=== PATIENT | female | born 1960 | race Two or more races ===

== ENCOUNTER 2022-10-14 11:35 | Inpatient (IN) | payer MEDICARE, MEDICAID ==
[~2022-10-14] VITALS: Ht 167.6 cm; Wt 87.9 kg
[2022-10-14] MEDS ORDERED: PIPERACILLIN-TAZOB 3.375GM 100 ML IV ONE (11:45)
[2022-10-14 12:15] VITALS: PULSE 75; RESP 14; O2SAT 97
[2022-10-14 12:24] LABS: Basophils # (auto) 0 10 ^3/uL (0-0.2); Basophils % (auto) 0.8 % (0.0-2.0); Eosinophils # (auto) 0.1 10 ^3/uL (0-0.8); Eosinophils % (auto) 1.6 % (0.0-7.0); Hematocrit 31.8 % (36.0-46.0); Hemoglobin 10.5 g/dL (12.2-16.2); Lymphocytes # (auto) 1.2 10 ^3/uL (0.4-5.4); Lymphocytes % (auto) 35.3 % (10.0-50.0); Mean Corpuscular Hgb Conc. 32.9 g/dL (32.0-36.0); Mean Corpuscular Volume 91.4 fL (80.0-100.0); Monocytes # (auto) 0.4 10 ^3/uL (0-1.3); Monocytes % (auto) 12.9 % (0.0-12.0); Neutrophils # (auto) 1.6 10 ^3/uL (1.6-8.6); Neutrophils % (auto) 49.4 % (37.0-80.0); Nucleated Red Blood Cells % 0.4 %; Red Blood Cells 3.48 10^6/uL (4.0-5.20); Red Cell Distribution Width 14.2 % (11.8-14.3); White Blood Cell 3.3 10^3/uL (4.4-10.8)
[2022-10-14 12:54] LABS: Alanine Aminotransferase 70 U/L (7-40); Albumin 3.6 g/dL (3.2-4.8); Alkaline Phosphatase 260 U/L (46-116); Anion Gap 7.2 (5-15); Aspartate Aminotransferase 65 U/L (13-40); BUN/Creatinine Ratio 9.9 (10.0-20.0); Bilirubin, Total 0.6 mg/dL (0.2-1.0); Blood Urea Nitrogen 34 mg/dL (9-23); Calcium 7.2 mg/dL (8.5-10.1); Carbon Dioxide 32.8 mmol/L (20-30); Chloride 94 mmol/L (98-107); Glucose 160 mg/dL (74-106); Potassium 3.9 mmol/L (3.5-5.1); Sodium 134 mmol/L (136-145); Total Protein 6.4 g/dL (5.7-8.2)
[2022-10-14] MEDS ORDERED: MET500T PO (16:14)
[2022-10-14] MEDS ORDERED: CLOP75TA70 PO (16:14)
[2022-10-14] MEDS ORDERED: LEVO150T10 PO (16:14)
[2022-10-14] MEDS ORDERED: HYDR25TA87 PO (16:14)
[2022-10-14] MEDS ORDERED: SUCR1TAB PO (16:14)
[2022-10-14] MEDS ORDERED: ASPI-325 PO (16:14)
[2022-10-14] MEDS ORDERED: ATOR40TA52 PO (16:14)
[2022-10-14] MEDS ORDERED: MORPHINE SULFATE INJ 2 MG/ml SYRG IV PRN (16:15)
[2022-10-14] MEDS ORDERED: DEXTROSE (50%) 50ML SYRG IV PRN (16:15)
[2022-10-14] MEDS ORDERED: hydrALAZINE HCL 20 MG/ML VL IV PRN (16:15)
[2022-10-14] MEDS ORDERED: ALBUTEROL SULF 2.5 MG/0.5ML(0.5%) NEB SOLN NEB PRN ×2 (16:15→16:45)
[2022-10-14] MEDS ORDERED: NITROGLYCERIN 0.4 MG SL TAB SL PRN (16:15)
[2022-10-14 16:24] VITALS: BP 184/73; PULSE 83; RESP 18; O2SAT 96
[2022-10-14] MEDS ORDERED: cefTRIAXone 1GM/50ML D5W 50 ML IV ONE (16:30)
[2022-10-14] MEDS: InsuLIN REG 1unit/0.01ml Soln (100units/ml) SC SCH ×2 (17:00→23:58)
[2022-10-14] MEDS: ACCU-CHEK COMFORT CURVE STRIP VI SCH ×2 (17:00→23:55)
[2022-10-14] MEDS ORDERED: AZITHROMYCIN 500MG/ 250ML 250 ML IV ONE (17:15)
[2022-10-14 17:16] LABS: COVID19 ANTIGEN SOFIA FIA NEGATIVE (NEGATIVE)
[2022-10-14] MEDS: IPRATROPIUM BROM 0.5 MG/2.5ML INH SOL NEB SCH ×2 (18:32→21:27)
[2022-10-14] MEDS: ALBUTEROL SULF 2.5 MG/0.5ML(0.5%) NEB SOLN NEB SCH ×2 (18:32→21:27)
[2022-10-14 20:10] VITALS: PULSE 80; RESP 17; O2SAT 98
[2022-10-14] MEDS: hydrALAZINE HCL 25 MG TAB PO SCH (23:58)
[2022-10-15] VITALS (14 sets, daily range): BP systolic 100; BP diastolic 75; PULSE 74–85; RESP 16–20; TEMP 98.4; O2SAT 93–100
[2022-10-15] MEDS: ATORVASTATIN 20 MG TAB PO SCH ×2 (00:04→21:19)
[2022-10-15] MEDS: HEPARIN SODIUM (PORCINE) 5000 UNITS/ML 1ML VIAL SC SCH ×3 (00:06→21:31)
[2022-10-15] MEDS: ALBUTEROL SULF 2.5 MG/0.5ML(0.5%) NEB SOLN NEB SCH ×6 (01:55→23:03)
[2022-10-15] MEDS: IPRATROPIUM BROM 0.5 MG/2.5ML INH SOL NEB SCH ×6 (01:55→23:03)
[2022-10-15 03:15] LABS: Rapid Influenza A Negative (Negative); Rapid Influenza B Negative (Negative)
[2022-10-15 06:08] LABS: Basophils # (auto) 0 10 ^3/uL (0-0.2); Basophils % (auto) 0.5 % (0.0-2.0); Eosinophils # (auto) 0 10 ^3/uL (0-0.8); Eosinophils % (auto) 1.5 % (0.0-7.0); Hematocrit 31.5 % (36.0-46.0); Hemoglobin 10.4 g/dL (12.2-16.2); Lymphocytes # (auto) 0.8 10 ^3/uL (0.4-5.4); Lymphocytes % (auto) 27.2 % (10.0-50.0); Mean Corpuscular Hemoglobin 30.3 pg (28.0-32.0); Mean Corpuscular Hgb Conc. 33.2 g/dL (32.0-36.0); Mean Corpuscular Volume 91.2 fL (80.0-100.0); Monocytes # (auto) 0.4 10 ^3/uL (0-1.3); Monocytes % (auto) 12.5 % (0.0-12.0); Neutrophils # (auto) 1.8 10 ^3/uL (1.6-8.6); Neutrophils % (auto) 58.3 % (37.0-80.0); Nucleated Red Blood Cells % 0.3 %; Red Blood Cells 3.45 10^6/uL (4.0-5.20); White Blood Cell 3.1 10^3/uL (4.4-10.8)
[2022-10-15 06:24] LABS: Alanine Aminotransferase 58 U/L (7-40); Albumin 3.6 g/dL (3.2-4.8); Alkaline Phosphatase 233 U/L (46-116); Anion Gap 7.4 (5-15); Aspartate Aminotransferase 60 U/L (13-40); BUN/Creatinine Ratio 7.6 (10.0-20.0); Bilirubin, Total 0.4 mg/dL (0.2-1.0); Blood Urea Nitrogen 39 mg/dL (9-23); Calcium 7.2 mg/dL (8.7-10.4); Carbon Dioxide 31.6 mmol/L (20-30); Chloride 94 mmol/L (98-107); Glucose 121 mg/dL (74-106); Potassium 3.8 mmol/L (3.5-5.1); Sodium 133 mmol/L (136-145)
[2022-10-15 06:25] LABS: Total Protein 6.6 g/dL (5.7-8.2)
[2022-10-15] MEDS: InsuLIN REG 1unit/0.01ml Soln (100units/ml) SC SCH ×4 (06:27→21:32)
[2022-10-15] MEDS: ACCU-CHEK COMFORT CURVE STRIP VI SCH ×4 (06:27→21:32)
[2022-10-15] MEDS: hydrALAZINE HCL 25 MG TAB PO SCH ×3 (06:51→21:20)
[2022-10-15] MEDS: CLOPIDOGREL BISULFATE 75 MG TAB PO SCH (08:52)
[2022-10-15] MEDS: ASPirin-EC 81 mg tab PO SCH (08:52)
[2022-10-15] MEDS: LEVOTHYROXINE SODIUM 50 MCG TAB PO SCH (08:53)
[2022-10-15] MEDS: AZITHROMYCIN 500MG/ 250ML 250 ML IV SCH (09:28)
[2022-10-15] MEDS: cefTRIAXone 1GM/50ML D5W 50 ML IV SCH (09:28)
[2022-10-15] MEDS ORDERED: LOSA50TA46 PO (19:08)
[2022-10-15] MEDS ORDERED: LORA-622 PO (19:16)
[2022-10-15] MEDS ORDERED: PROM25TA10 PO (19:16)
[2022-10-15] MEDS ORDERED: HYDR-4902 PO (19:16)
[2022-10-15] MEDS ORDERED: PATI1POW3 PO (19:16)
[2022-10-15] MEDS ORDERED: LEVEMIR SC (19:16)
[2022-10-15] MEDS ORDERED: NITR0.4S29 SL (19:16)
[2022-10-15] MEDS ORDERED: DIPH2.5T73 PO (19:16)
[2022-10-15] MEDS ORDERED: DOCU-94 PO (19:16)
[2022-10-15] MEDS ORDERED: HYDR-3682 PO (19:16)
[2022-10-15] MEDS ORDERED: BIOT5TAB3 PO (19:16)
[2022-10-15] MEDS ORDERED: CARV12.544 PO (19:16)
[2022-10-16] VITALS (21 sets, daily range): BP systolic 123–169; BP diastolic 46–72; PULSE 78–84; RESP 14–20; TEMP 97.6–98; O2SAT 90–100
[2022-10-16] MEDS: ALBUTEROL SULF 2.5 MG/0.5ML(0.5%) NEB SOLN NEB SCH ×6 (02:18→22:25)
[2022-10-16] MEDS: IPRATROPIUM BROM 0.5 MG/2.5ML INH SOL NEB SCH ×6 (02:18→22:25)
[2022-10-16] MEDS: ACETAMINOPHEN 325 MG TAB PO PRN (04:57)
[2022-10-16] MEDS: hydrALAZINE HCL 25 MG TAB PO SCH ×3 (05:33→21:35)
[2022-10-16] MEDS: InsuLIN REG 1unit/0.01ml Soln (100units/ml) SC SCH ×4 (06:12→21:41)
[2022-10-16] MEDS: ACCU-CHEK COMFORT CURVE STRIP VI SCH ×4 (06:12→21:41)
[2022-10-16 06:59] LABS: Chloride 92 mmol/L (98-107); Sodium 131 mmol/L (136-145)
[2022-10-16 07:00] LABS: Anion Gap 8.9 (5-15); Carbon Dioxide 30.1 mmol/L (20-30)
[2022-10-16 07:05] LABS: BUN/Creatinine Ratio 7.4 (10.0-20.0); Glucose 97 mg/dL (74-106)
[2022-10-16 07:35] LABS: Basophils # (auto) 0 10 ^3/uL (0-0.2); Basophils % (auto) 0.4 % (0.0-2.0); Eosinophils # (auto) 0.1 10 ^3/uL (0-0.8); Eosinophils % (auto) 3.1 % (0.0-7.0); Hematocrit 29.2 % (36.0-46.0); Hemoglobin 9.8 g/dL (12.2-16.2); Lymphocytes % (auto) 27.8 % (10.0-50.0); Mean Corpuscular Hemoglobin 30.7 pg (28.0-32.0); Mean Corpuscular Hgb Conc. 33.6 g/dL (32.0-36.0); Mean Corpuscular Volume 91.3 fL (80.0-100.0); Monocytes # (auto) 0.5 10 ^3/uL (0-1.3); Monocytes % (auto) 12.9 % (0.0-12.0); Neutrophils # (auto) 2.1 10 ^3/uL (1.6-8.6); Neutrophils % (auto) 55.8 % (37.0-80.0); Nucleated Red Blood Cells % 0.1 %; Red Cell Distribution Width 13.8 % (11.8-14.3); White Blood Cell 3.8 10^3/uL (4.4-10.8)
[2022-10-16 08:01] LABS: Blood Urea Nitrogen 49 mg/dL (9-23)
[2022-10-16] MEDS: CLOPIDOGREL BISULFATE 75 MG TAB PO SCH ×2 (09:18→10:16)
[2022-10-16] MEDS: LEVOTHYROXINE SODIUM 50 MCG TAB PO SCH (09:19)
[2022-10-16] MEDS: cefTRIAXone 1GM/50ML D5W 50 ML IV SCH (09:19)
[2022-10-16] MEDS: ASPirin-EC 81 mg tab PO SCH (09:19)
[2022-10-16] MEDS: HEPARIN SODIUM (PORCINE) 5000 UNITS/ML 1ML VIAL SC SCH ×2 (10:00→21:40)
[2022-10-16] MEDS: AZITHROMYCIN 500MG/ 250ML 250 ML IV SCH (10:20)
[2022-10-16] MEDS: ONDANSETRON HCL 4 MG/2 ML VIAL IV PRN (12:35)
[2022-10-16] MEDS: ATORVASTATIN 20 MG TAB PO SCH (21:35)
[2022-10-17] VITALS (19 sets, daily range): BP systolic 136–175; BP diastolic 41–84; PULSE 79–88; RESP 16–20; TEMP 97.4–98.6; O2SAT 90–100
[2022-10-17] MEDS: ALBUTEROL SULF 2.5 MG/0.5ML(0.5%) NEB SOLN NEB SCH ×6 (02:35→22:43)
[2022-10-17] MEDS: IPRATROPIUM BROM 0.5 MG/2.5ML INH SOL NEB SCH ×6 (02:35→22:43)
[2022-10-17] MEDS: ACETAMINOPHEN 325 MG TAB PO PRN (05:26)
[2022-10-17] MEDS: hydrALAZINE HCL 25 MG TAB PO SCH ×3 (05:32→21:44)
[2022-10-17] MEDS: ONDANSETRON HCL 4 MG/2 ML VIAL IV PRN (06:19)
[2022-10-17] MEDS: InsuLIN REG 1unit/0.01ml Soln (100units/ml) SC SCH ×4 (06:38→21:55)
[2022-10-17] MEDS: ACCU-CHEK COMFORT CURVE STRIP VI SCH ×4 (06:38→21:54)
[2022-10-17] MEDS ORDERED: HEPARIN SODIUM (PORCINE) 5000 UNITS/ML 1ML VIAL ONE (09:20)
[2022-10-17] MEDS: AZITHROMYCIN 500MG/ 250ML 250 ML IV SCH (09:35)
[2022-10-17] MEDS: cefTRIAXone 1GM/50ML D5W 50 ML IV SCH (09:35)
[2022-10-17] MEDS: LEVOTHYROXINE SODIUM 50 MCG TAB PO SCH (09:36)
[2022-10-17] MEDS: CLOPIDOGREL BISULFATE 75 MG TAB PO SCH (09:36)
[2022-10-17] MEDS: ASPirin-EC 81 mg tab PO SCH (09:37)
[2022-10-17] MEDS: HEPARIN SODIUM (PORCINE) 5000 UNITS/ML 1ML VIAL SC SCH ×2 (09:46→21:49)
[2022-10-17] MEDS ORDERED: SODIUM CHL 0.9% 1000 ML BAG XX ONE (11:00)
[2022-10-17] MEDS: ATORVASTATIN 20 MG TAB PO SCH (21:43)
[2022-10-18] VITALS (13 sets, daily range): BP systolic 123–150; BP diastolic 54–71; PULSE 81–95; RESP 16–21; TEMP 97.8–98.7; O2SAT 92–100
[2022-10-18] MEDS: ALBUTEROL SULF 2.5 MG/0.5ML(0.5%) NEB SOLN NEB SCH ×4 (01:48→14:19)
[2022-10-18] MEDS: IPRATROPIUM BROM 0.5 MG/2.5ML INH SOL NEB SCH ×4 (01:48→14:19)
[2022-10-18] MEDS: hydrALAZINE HCL 25 MG TAB PO SCH ×2 (06:17→13:50)
[2022-10-18] MEDS: InsuLIN REG 1unit/0.01ml Soln (100units/ml) SC SCH ×2 (06:19→12:07)
[2022-10-18] MEDS: ACCU-CHEK COMFORT CURVE STRIP VI SCH ×2 (06:21→12:05)
[2022-10-18 06:41] LABS: Anion Gap 6.2 (5-15); Calcium 7.3 mg/dL (8.7-10.4); Carbon Dioxide 30.8 mmol/L (20-30); Chloride 97 mmol/L (98-107); Potassium 4.4 mmol/L (3.5-5.1); Sodium 134 mmol/L (136-145)
[2022-10-18 06:47] LABS: BUN/Creatinine Ratio 5.3 (10.0-20.0); Glucose 113 mg/dL (74-106)
[2022-10-18 06:49] LABS: Blood Urea Nitrogen 30 mg/dL (9-23)
[2022-10-18] MEDS: cefTRIAXone 1GM/50ML D5W 50 ML IV SCH (09:01)
[2022-10-18] MEDS: ASPirin-EC 81 mg tab PO SCH (09:02)
[2022-10-18] MEDS: LEVOTHYROXINE SODIUM 50 MCG TAB PO SCH (09:02)
[2022-10-18] MEDS: CLOPIDOGREL BISULFATE 75 MG TAB PO SCH (09:03)
[2022-10-18] MEDS: AZITHROMYCIN 500MG/ 250ML 250 ML IV SCH (10:25)
[2022-10-18] MEDS ORDERED: DOXY-448 PO (14:19)
[2022-10-18] MEDS: HEPARIN SODIUM (PORCINE) 5000 UNITS/ML 1ML VIAL SC SCH (14:32)
[2022-10-18] MEDS ORDERED: DOXYCYCLINE 100 MG TAB/CAP PO SCH (22:00)
== END 2022-10-18 17:30 | disposition home or self-care (01) | DRG 177 ==
LOC: EDBD 11:35 → ER 11:35 → TELE 16:12 → TELE-WESTW 10-15 18:41
PROVIDERS: ADMIT Nurse Practitioner Family; ATTEND Nurse Practitioner Acute Care
PROC: 5A1D70Z Performance of Urinary Filtration, Intermittent, Less than 6 Hours Per Day (ICD-10-PCS; principal; 2022-10-17)
DX: J15.6 Pneumonia due to other Gram-negative bacteria (principal); J96.01 Acute respiratory failure with hypoxia; N18.6 End stage renal disease; I12.0 Hypertensive chronic kidney disease with stage 5 chronic kidney disease or end stage renal disease; J15.9 Unspecified bacterial pneumonia; E11.65 Type 2 diabetes mellitus with hyperglycemia; M89.8X9 Other specified disorders of bone, unspecified site; Z20.822 Contact with and (suspected) exposure to COVID-19; D63.1 Anemia in chronic kidney disease; E11.22 Type 2 diabetes mellitus with diabetic chronic kidney disease; Z99.2 Dependence on renal dialysis; Z83.3 Family history of diabetes mellitus
CPT/HCPCS: 36415; 71045; 80048; 80053; 82962; 83036; 83880; 84443; 84484; 85025; 87426; 87804; 90935; 93005; 93306; 94640; 96365; 96367; 99291; G0378; J0696; J1815; J2405; J2543

== ENCOUNTER 2023-01-13 15:08 | Emergency (ER) | payer MEDICARE, MEDICAID ==
[~2023-01-13] VITALS: Ht 167.6 cm; Wt 85.4 kg
[~2023-01-13 15:08] MED LIST: ASPI-325 PO; BIOT5TAB3 PO; CARV12.544 PO; CLOP75TA70 PO; DIPH2.5T73 PO; DOCU-94 PO; DOXY-448 PO; HYDR-3682 PO; HYDR-4902 PO; LEVEMIR SC; LEVO150T10 PO; LORA-622 PO; LOSA50TA46 PO; NITR0.4S29 SL; PATI1POW3 PO; PROM25TA10 PO
[2023-01-13 15:22] VITALS: BP 140/59; PULSE 77; RESP 17; O2SAT 95
[2023-01-13] MEDS ORDERED: AMOXICILLIN/CLAVUL 875 MG TAB PO ONE (15:30)
[2023-01-13] MEDS ORDERED: HYDROcodone-ACET 10/325MG TAB PO ONE (15:30)
[2023-01-13] MEDS ORDERED: TETANUS-DIPTH-ACEL PERTUSSIS 0.5ML SYR Tdap IM ONE (15:30)
[2023-01-13] MEDS ORDERED: IBUP-1455 PO (16:36)
[2023-01-13] MEDS ORDERED: ACE3T PO (16:36)
[2023-01-13] MEDS ORDERED: AUG875T PO (16:36)
== END 2023-01-13 17:51 | disposition home or self-care (01) ==
LOC: ER 15:08
DX: K04.7 Periapical abscess without sinus (principal); E11.22 Type 2 diabetes mellitus with diabetic chronic kidney disease; I12.9 Hypertensive chronic kidney disease with stage 1 through stage 4 chronic kidney disease, or unspecified chronic kidney disease; N18.9 Chronic kidney disease, unspecified
CPT/HCPCS: 70486; 90471; 90715

== ENCOUNTER 2023-08-21 06:42 | Inpatient (IN) | payer MEDICARE, MEDICAID ==
[~2023-08-21] VITALS: Ht 167.6 cm; Wt 83.5 kg
[~2023-08-21 06:42] MED LIST changes: +ACE3T PO; +AUG875T PO; +IBUP-1455 PO; +LOSA-534 PO; -LOSA50TA46 PO
[2023-08-21 07:49] VITALS: PULSE 66; RESP 16; O2SAT 96
[2023-08-21 07:51] LABS: Basophils # (auto) 0 10 ^3/uL (0-0.2); Basophils % (auto) 1.2 % (0.0-2.0); Eosinophils # (auto) 0.2 10 ^3/uL (0-0.8); Eosinophils % (auto) 4.1 % (0.0-7.0); Hematocrit 31.6 % (36.0-46.0); Hemoglobin 10.6 g/dL (12.2-16.2); Lymphocytes # (auto) 1.2 10 ^3/uL (0.4-5.4); Lymphocytes % (auto) 31.2 % (10.0-50.0); Mean Corpuscular Hemoglobin 31.3 pg (28.0-32.0); Mean Corpuscular Hgb Conc. 33.5 g/dL (32.0-36.0); Mean Corpuscular Volume 93.4 fL (80.0-100.0); Monocytes # (auto) 0.5 10 ^3/uL (0-1.3); Monocytes % (auto) 11.4 % (0.0-12.0); Neutrophils # (auto) 2.1 10 ^3/uL (1.6-8.6); Neutrophils % (auto) 52.1 % (37.0-80.0); Nucleated Red Blood Cells % 0.2 %; Red Blood Cells 3.39 10^6/uL (4.0-5.20); Red Cell Distribution Width 15.2 % (11.8-14.3)
[2023-08-21 08:01] LABS: Chloride 101 mmol/L (98-107); Potassium 3.6 mmol/L (3.5-5.1); Sodium 139 mmol/L (136-145)
[2023-08-21 08:02] LABS: Anion Gap 6 (5-15); Carbon Dioxide 32 mmol/L (20-30)
[2023-08-21 08:03] LABS: Calcium 8.9 mg/dL (8.5-10.1)
[2023-08-21 08:07] LABS: BUN/Creatinine Ratio 9.9 (10.0-20.0); Blood Urea Nitrogen 47 mg/dL (9-23); Glucose 157 mg/dL (74-106)
[2023-08-21] MEDS: cloNIDine HCL 0.1 MG TAB PO ONE (13:27)
[2023-08-21] MEDS: HYDROcodone-ACET 10/325MG TAB PO ONE (13:27)
[2023-08-21] MEDS ORDERED: ACETAMINOPHEN 325 MG TAB PO PRN (14:45)
[2023-08-21] MEDS ORDERED: DEXTROSE (50%) 50ML SYRG IV PRN (14:45)
[2023-08-21] MEDS ORDERED: DOCUSATE SOD 100 MG CAP PO PRN (14:45)
[2023-08-21] MEDS ORDERED: IBUPROFEN 800 MG TAB PO PRN (14:45)
[2023-08-21] MEDS: ACCU-CHEK COMFORT CURVE STRIP VI SCH (17:38)
[2023-08-21] MEDS: InsuLIN REG 1unit/0.01ml Soln (100units/ml) SC SCH (17:39)
[2023-08-21] MEDS: CARVEDILOL 12.5 MG TAB PO SCH (22:14)
[2023-08-21 22:25] VITALS: PULSE 84; RESP 18; O2SAT 98
[2023-08-22] VITALS (8 sets, daily range): BP systolic 132–157; BP diastolic 56–61; PULSE 62–72; RESP 16–20; TEMP 97.4–98.9; O2SAT 90–100
[2023-08-22] MEDS: LEVOTHYROXINE SODIUM 50 MCG TAB PO SCH (05:31)
[2023-08-22 07:01] LABS: Basophils # (auto) 0 10 ^3/uL (0-0.2); Basophils % (auto) 0.9 % (0.0-2.0); Eosinophils # (auto) 0.2 10 ^3/uL (0-0.8); Eosinophils % (auto) 5.2 % (0.0-7.0); Hematocrit 31.5 % (36.0-46.0); Hemoglobin 10.7 g/dL (12.2-16.2); Lymphocytes # (auto) 1.2 10 ^3/uL (0.4-5.4); Lymphocytes % (auto) 29.3 % (10.0-50.0); Mean Corpuscular Hemoglobin 31.9 pg (28.0-32.0); Mean Corpuscular Volume 93.7 fL (80.0-100.0); Monocytes # (auto) 0.4 10 ^3/uL (0-1.3); Monocytes % (auto) 10.9 % (0.0-12.0); Neutrophils # (auto) 2.2 10 ^3/uL (1.6-8.6); Neutrophils % (auto) 53.7 % (37.0-80.0); Nucleated Red Blood Cells % 0.1 %; Red Blood Cells 3.36 10^6/uL (4.0-5.20); Red Cell Distribution Width 15.1 % (11.8-14.3); White Blood Cell 4.1 10^3/uL (4.4-10.8)
[2023-08-22 07:06] LABS: Alanine Aminotransferase 21 U/L (7-40); Albumin 3.5 g/dL (3.2-4.8); Alkaline Phosphatase 356 U/L (46-116); Anion Gap 10 (5-15); Aspartate Aminotransferase 24 U/L (13-40); BUN/Creatinine Ratio 10.7 (10.0-20.0); Blood Urea Nitrogen 66 mg/dL (9-23); Calcium 8.8 mg/dL (8.5-10.1); Carbon Dioxide 29 mmol/L (20-30); Chloride 99 mmol/L (98-107); Glucose 129 mg/dL (74-106); Potassium 4.8 mmol/L (3.5-5.1); Sodium 138 mmol/L (136-145)
[2023-08-22 07:07] LABS: Bilirubin, Total 0.3 mg/dL (0.2-1.0); Total Protein 6.2 g/dL (5.7-8.2)
[2023-08-22] MEDS: CLOPIDOGREL BISULFATE 75 MG TAB PO SCH (09:24)
[2023-08-22] MEDS: ASPirin-EC 81 mg tab PO SCH (09:24)
[2023-08-22] MEDS: LOSARTAN POTASSIUM 50 MG TAB PO SCH (09:24)
[2023-08-22] MEDS: LORATADINE 10 MG TAB PO SCH (09:25)
[2023-08-22] MEDS: HYDROcodone-ACET 5/325MG TAB PO PRN (12:05)
[2023-08-23 05:00] VITALS: BP 150/62; PULSE 64; RESP 18; TEMP 98; O2SAT 100
[2023-08-23 08:00] VITALS: PULSE 68; RESP 16; O2SAT 100
[2023-08-23 09:00] VITALS: BP 111/68; PULSE 68; RESP 18; TEMP 97.8; O2SAT 94
[2023-08-23 13:00] VITALS: BP 127/61; PULSE 67; RESP 18; TEMP 98.6; O2SAT 95
[2023-08-23 16:31] VITALS: BP 148/67; PULSE 72; RESP 17; TEMP 98.2; O2SAT 93
[2023-08-23 21:00] VITALS: BP 115/51; PULSE 74; RESP 17; TEMP 98; O2SAT 93
[2023-08-24 01:00] VITALS: BP 140/58; PULSE 68; RESP 18; TEMP 98; O2SAT 98
[2023-08-24 05:00] VITALS: BP 139/57; PULSE 73; RESP 18; TEMP 98.1; O2SAT 96
[2023-08-24 08:00] VITALS: PULSE 67; RESP 21; O2SAT 100
[2023-08-24 08:56] VITALS: BP 141/60; PULSE 67; RESP 21; TEMP 98; O2SAT 92
[2023-08-24] MEDS ORDERED: HYDR-4902 PO (09:49)
[2023-08-24 10:48] VITALS: BP 141/60; PULSE 67; RESP 21; TEMP 98; O2SAT 92
== END 2023-08-24 11:37 | disposition home or self-care (01) | DRG 551 ==
LOC: ER 06:44 → OVERFLOW 14:44 → WEST WING 22:17
PROVIDERS: ADMIT Nurse Practitioner Family; ATTEND Family Medicine
PROC: 5A1D70Z Performance of Urinary Filtration, Intermittent, Less than 6 Hours Per Day (ICD-10-PCS; principal; 2023-08-23)
DX: M48.00 Spinal stenosis, site unspecified (principal); N18.6 End stage renal disease; I12.0 Hypertensive chronic kidney disease with stage 5 chronic kidney disease or end stage renal disease; G89.29 Other chronic pain; E03.9 Hypothyroidism, unspecified; E11.22 Type 2 diabetes mellitus with diabetic chronic kidney disease; D63.1 Anemia in chronic kidney disease; D72.819 Decreased white blood cell count, unspecified; Z99.2 Dependence on renal dialysis; Z79.899 Other long term (current) drug therapy; Z83.3 Family history of diabetes mellitus; Z79.4 Long term (current) use of insulin; E11.65 Type 2 diabetes mellitus with hyperglycemia
CPT/HCPCS: 36415; 72131; 80048; 80053; 82962; 83036; 84484; 85025; 87081; 90935; 93005; G0378; J1815

== ENCOUNTER 2024-10-11 13:11 | Inpatient (IN) | payer MEDICARE, MEDICAID ==
[~2024-10-11] VITALS: Ht 165.1 cm; Wt 86.9 kg
[~2024-10-11 13:11] MED LIST changes: -ACE3T PO; -AUG875T PO; -DOXY-448 PO
--- NOTE | 2024-10-11 14:09 | ED.PDOC ---
History of Present Illness HPI Comments 64-year-old female with a history of hypertension, end-stage renal disease on dialysis, anemia of chronic disease, hyperparathyroidism, dyslipidemia, diabetes and duodenal ulcer brought in by EMS from home complaining of a severe left periorbital headache radiating to the left parietal area, associated with nausea and vomiting since yesterday. Patient states she took Tylenol and 2 [place] over the past 2 days without relief. She denies fever, diarrhea or constipation. She does report upper abdominal pain. No vision changes, dizziness or focal weakness. Chief Complaint: Headache Time Seen by MD: 13:55 Primary Care Provider: unknown Reviewed Notes: Medications, Allergies Allergies: Coded Allergies: NO KNOWN ALLERGIES (Unverified , 10/14/22) Home Meds Active Scripts Hydrocodone-Acetaminophen (Hydrocodone Bitartrate/AC 5-325 mg) 1 Tab Tab, 1 TAB PO QID PRN, #30 TAB Prov:PAULETTE KIM MD 08/24/23 Ibuprofen Micronized (Ibuprofen) 800 Mg Tab, 800 MG PO Q8HP PRN, #30 TAB Prov:JADYN NICHOLE PAC 01/13/23 Reported Medications Docusate Sodium (Colace) 100 Mg Cap, 100 MG PO, CAP 10/15/22 Biotin (Vitamin H) (BIOTIN) 5 Mg Tab, 5000 MG PO, TAB 10/15/22 Hydrocodone-Acetaminophen (Hydrocodone Bitartrate/AC 5-325 mg) 1 Tab Tab, 1 TAB PO, TAB 10/15/22 Promethazine Hcl (Promethazine Hcl) 25 Mg Tab, 25 MG PO, TAB 10/15/22 Diphenoxylate W/ Atropine (Lomotil) 2.5 Mg Tab, 2.5 MCG PO, TAB 10/15/22 Loratadine (Claritin) 10 Mg Tab, 10 MG PO, TAB 10/15/22 Insulin Detemir (Levemir) Inj, 10 UNITS SC DAILY, INJ 10/15/22 Carvedilol (Carvedilol) 12.5 Mg Tab, 12.5 MG PO BID, TAB 10/15/22 Nitroglycerin (NTROSTAT SUBLINGUAL) 0.4 Mg Sl, 0.4 MG SL PRN, TAB *MAY REPEAT EVERY 5 MINUTES X 3 TOTAL IF NO RELIEF, INITIATE ANALGESIC THERAPY. NOTIFY PHYSICIAN *Do not crush. 10/15/22 Hydroxyzine Hcl (Hydroxyzine Hcl) 25 Mg Tab, 25 MG PO, TAB 10/15/22 Patiromer Sorbitex Calcium (Veltassa) 16.8 Gm Pow, 16.8 GM PO, POW 10/15/22 Losartan Potassium (Losartan Potassium) 50 Mg Tab, 1 TAB PO DAILY, #30 TAB 5 Refills 10/15/22 Levothyroxine Sodium (Levothyroxine Sodium) 150 Mcg Tab, 1 TAB PO DAILY 10/14/22 Clopidogrel Bisulfate (CLOPIDOGREL) 75 Mg Tab, 1 TAB PO DAILY 10/14/22 Aspirin (Aspirin Low Dose) 81 Mg Tab, 1 TAB PO DAILY 10/14/22 Information Source: Patient Mode of Arrival: EMS Severity: Moderate Timing: Days Duration: Since onset Prehospital treatment: [facility] Past Medical History PAST MEDICAL HISTORY: CKF, DM, ESRD, HTN [employer] History: Denies all [employer] INS[employer]OR Hx Family History Family History: Unknown Social History Smoker: Non-Smoker Alcohol: Denies ETOH Use Drugs: Denies Drug Use Lives In: Home All Other Systems: Reviewed and Negative (Comprehensive systems reviewed and all negative except for what is stated in the HPI) Physical Exam General Appearance: Moderate Distress HEENT: PERRL/EOMI, Photophobia, Other (Pupils and face symmetric. Moist mucous membranes.) Neck: Full Range of Motion, Normal Inspection Respiratory: Lungs Clear, No Accessory Muscle Use, No Respiratory Distress, Normal Breath Sounds Cardiovascular: No Edema, No JVD, Regular Rate/Rhythm Breast Exam: Deferred Gastrointestinal: Non Tender, Soft Genitalia: Deferred Pelvic: Deferred Rectal: Deferred Extremities: Normal range of motion, Non-tender, No pedal edema Neurologic: Alert (Oriented x4), Normal Affect, Normal Mood, Other (No gross focal deficit) Cerebellar Function: NOT DONE Reflexes: NOT DONE Skin: Dry, Normal Color, Warm Lymphatic: NOT DONE Was a procedure done? Was a procedure done?: No Differential Dx Considerations may include: Vascular/metabolic/migraine/tension headache, CVA, TIA, intracranial hemorrhage, mass lesion, infection, among others X-Ray, Labs, Meds, VS Vital Signs Date Time Temp Pulse Resp B/P (MAP) Pulse Ox O2 Delivery O2 Flow Rate FiO2 10/11/24 20:30 67 13 149/54 (85) 99 10/11/24 20:30 67 13 149/54 10/11/24 20:06 65 10/11/24 20:00 70 17 196/87 10/11/24 19:50 196/87 10/11/24 19:45 98.0 70 17 (123) 98 98.0 10/11/24 19:45 Nasal Cannula* 2 28 10/11/24 15:26 98.0 75 18 193/84 95 98.0 Lab Test 10/11/24 18:48 10/11/24 15:57 10/11/24 14:42 Range/Units Troponin I High Sensitivity 36 *H 33 32 </=34 ng/L Thyroid Stimulating Hormone (TSH) 0.16 L 0.55-4.78 uIU/mL White Blood Count 3.9 L 4.4-10.8 10^3/uL Red Blood Count 3.69 L 4.0-5.20 10^6/uL Hemoglobin 11.7 L 12.2-16.2 g/dL Hematocrit 35.2 L 36.0-46.0 % Mean Corpuscular Volume 95.4 80.0-100.0 fL Mean Corpuscular Hemoglobin 31.7 28.0-32.0 pg Mean Corpuscular Hemoglobin Concent 33.2 32.0-36.0 g/dL Red Cell Distribution Width 13.9 11.8-14.3 % Platelet Count 170 140-450 10^3/uL Mean Platelet Volume 7.7 6.9-10.8 fL Neutrophils (%) (Auto) 59.2 37.0-80.0 % Lymphocytes (%) (Auto) 27.8 10.0-50.0 % Monocytes (%) (Auto) 9.7 0.0-12.0 % Eosinophils (%) (Auto) 2.5 0.0-7.0 % Basophils (%) (Auto) 0.8 0.0-2.0 % Neutrophils # (Auto) 2.3 1.6-8.6 10 ^3/uL Lymphocytes # (Auto) 1.1 0.4-5.4 10 ^3/uL Monocytes # (Auto) 0.4 0-1.3 10 ^3/uL Eosinophils # (Auto) 0.1 0-0.8 10 ^3/uL Basophils # (Auto) 0 0-0.2 10 ^3/uL Nucleated Red Blood Cells 0.1 % Sodium Level 135 L 136-145 mmol/L Potassium Level 3.7 3.5-5.1 mmol/L Chloride Level 92 L 98-107 mmol/L Carbon Dioxide Level 31 20-31 mmol/L Anion Gap 12 5-15 Blood Urea Nitrogen 25 H 9-23 mg/dL Creatinine 3.49 H 0.550-1.02 mg/dL Glomerular Filtration Rate Calc 14 >90 mL/min BUN/Creatinine Ratio 7.2 L 10.0-20.0 Serum Glucose 96 74-106 mg/dL Calcium Level 8.3 L 8.7-10.4 mg/dL Total Bilirubin 0.5 0.2-1.0 mg/dL Aspartate Amino Transferase (AST) 23 13-40 U/L Alanine Aminotransferase (ALT) 12 7-40 U/L Alkaline Phosphatase 274 H 46-116 U/L B-Type Natriuretic Peptide 1285.60 0-100 pg/mL Total Protein 7.8 5.7-8.2 g/dL Albumin 4.6 3.2-4.8 g/dL Lipase 29 12-53 U/L Current Medications Medications (Trade) Dose Ordered Sig/Ashley Route Start Time Stop Time Status Last Admin Morphine Sulfate 4 mg ONCE ONCE IV 10/11/24 14:15 10/11/24 14:16 DC 10/11/24 20:00 Ondansetron HCl (Zofran) 4 mg ONCE ONCE IV 10/11/24 14:15 10/11/24 14:16 DC 10/11/24 20:00 Hydralazine HCl (Apresoline Injection) 10 mg ONCE ONCE IV 10/11/24 18:45 10/11/24 18:46 DC 10/11/24 19:50 Aspirin 162 mg ONCE ONCE PO 10/11/24 22:00 10/11/24 22:13 DC 10/11/24 23:36 Carvedilol (Coreg Tablet) 3.125 mg Q12HR PO 10/11/24 22:00 10/11/24 23:36 Calcium Gluconate/ Sodium Chloride 50 ml @ 100 mls/hr ONCE ONCE IV 10/11/24 22:00 10/11/24 22:29 DC 10/11/24 23:36 Diagnostic Test (Pha) (Accu-Chek Comfort Curve T) 1 strip ACHS 10/11/24 22:00 10/11/24 23:36 Sodium Chloride (Saline Lock Ns) 10 ml Q8HR IV 10/11/24 22:00 10/11/24 23:25 X-Ray, Labs, Meds, VS Comment 64-year-old female with a history of hypertension, end-stage renal disease on dialysis, anemia of chronic disease, hyperparathyroidism, dyslipidemia, diabetes and duodenal ulcer brought in by EMS from home complaining of a severe left periorbital headache radiating to the left parietal area, associated with nausea and vomiting since yesterday. Vitals remarkable for BP 183/84 Exam unremarkable Rhythm strip independently interpreted by me: Sinus rhythm, rate 85, no ectopy. CT head IMPRESSION: NO ACUTE INTRACRANIAL ABNORMALITY SEEN. Chest x-ray IMPRESSION: Pulmonary vascular congestion with right lower lung zone and left mid to lower lung zone atelectasis. CT abdomen and pelvis Impression: 1. No acute abdominopelvic abnormalities. 2. Mild pelvic ascites, nonspecific. 3. Trace bilateral pleural effusions. CBC remarkable for WBC 3.9, metabolic panel remarkable for sodium 135, chloride 92, BUN 25, creatinine 3.49, 2 serial troponins negative, BNP 1285.6, UA pending Patient treated with the following in the ED: Morphine 4 mg IV, Zofran 4 mg IV, hydralazine 10 mg IV On re-evaluation, blood pressure and headache have improved. Vitals were stable. Plan is to admit the patient for pain control, blood pressure control and diuresis. Time of 1ST Reevaluation: 14:27 Reevaluation 1ST: Unchanged Patient Education/Counseling: Diagnosis, Treatment Family Education/Counseling: No Family Present SEPSIS Sepsis Screen Physician Orders Chest Portable (10/11/24 14:03) Urinalysis (10/11/24 14:03) Electrocardigram (10/11/24 14:03) Head Without Contrast (10/11/24 14:03) Ct Ab Pel Wo Con-No Oral Or Iv (10/11/24 14:08) Manager Community Relations (10/11/24 ) Clopidogrel Bisulfate (Plavix) (10/12/24 10:00) Sevelamer (Renagel) (10/12/24 08:00) B-Complex W/ C & Folic Tablet (Nephro-Vi (10/12/24 10:00) Carvedilol Tablet (Coreg Tablet) (10/11/24 22:00) *[facility] (10/11/24 21:56) Calcium Acetate Capsule (Phoslo Capsule) (10/12/24 08:00) Levothyroxine Tablet (Synthroid Tablet) (10/12/24 06:00) Hydralazine Injection (Apresoline Inject (10/11/24 22:00) Glucose Blood (Accu-Chek Comfort Curve T (10/11/24 22:00) Insulin R (Human) (Insulin R) (10/11/24 22:00) Dextrose 50% Syringe (10/11/24 22:00) Allergies (10/11/24 21:56) Code Status (10/11/24:56) Renal Standard(2gna,3gk,Lopho) (10/12/24 Breakfast) Sodium Chloride Lock (Saline Lock Ns) (10/11/24 22:00) Oxygen Per Hour (10/11/24:56) Hydrocodone-Acet 5/325mg Tab ([place] 5/32 (10/11/24 22:00) Ondansetron Hcl (Zofran) (10/11/24 22:00) Docusate Sodium Capsule (Colace Capsule) (10/11/24 22:00) Complete Blood Count (10/12/24 04:00) Comprehensive Metabolic Panel (10/12/24 04:00) Echo 2d Mode Cardiac Dop (10/11/24:56) Condition: Serious (10/11/24 21:56) Acetaminophen Tablet (Tylenol Tablet) (10/11/24 22:00) Bedrest With Bathroom Privileg (10/11/24 21:56) Sequential Compression Device (10/11/24 ) Aspirin Tablet (10/12/24 10:00) Vital Signs Date Time Temp Pulse Resp B/P (MAP) Pulse Ox O2 Delivery O2 Flow Rate FiO2 10/11/24 20:30 67 13 149/54 (85) 99 10/11/24 20:30 67 13 149/54 10/11/24 20:06 65 10/11/24 20:00 70 17 196/87 10/11/24 19:50 196/87 10/11/24 19:45 98.0 70 17 196/87 (123) 98 98.0 10/11/24 19:45 Nasal Cannula* 2 28 10/11/24 15:26 98.0 75 18 193/84 95 98.0 Laboratory Tests Test 10/11/24 14:42 White Blood Count 3.9 10^3/uL (4.4-10.8) L Medications Medications Dose Ordered Sig/Ashley Route Start Time Stop Time Status Last Admin Dose Admin Aspirin 162 mg ONCE ONCE PO 10/11/24 22:00 10/11/24 22:13 DC 10/11/24 23:36 Calcium Gluconate/ Sodium Chloride 50 ml @ 100 mls/hr ONCE ONCE IV 10/11/24 22:00 10/11/24 22:29 DC 10/11/24 23:36 Carvedilol 3.125 mg Q12HR PO 10/11/24 22:00 10/11/24 23:36 Diagnostic Test (Pha) 1 strip ACHS 10/11/24 22:00 10/11/24 23:36 Hydralazine HCl 10 mg ONCE ONCE IV 10/11/24 18:45 10/11/24 18:46 DC 10/11/24 19:50 Morphine Sulfate 4 mg ONCE ONCE IV 10/11/24 14:15 10/11/24 14:16 DC 10/11/24 20:00 Ondansetron HCl 4 mg ONCE ONCE IV 10/11/24 14:15 10/11/24 14:16 DC 10/11/24 20:00 Sodium Chloride 10 ml Q8HR IV 10/11/24 22:00 10/11/24 23:25 Departure 1 Departure Time of Disposition: 17:00 Impression: Primary Impression: Vascular headache Additional Impressions: Hypertensive urgency Fluid overload Disposition: 09 ADMITTED INPATIENT Admit to: Tele Condition: Guarded Critical Care Note Critical Care Time?: No Stability Stability form required: No Heart Score Heart Score: Heart Score Response (Comments) Value History N/A 0 EKG N/A 0 Age N/A 0 Risk Factors N/A 0 Troponin N/A 0 Total 0 I personally scribed for NGOC PICKETT MD ([email or web address]) on 10/11/24 at 14:13. Electronically submitted by Enoch Canales ([email or web address]). NGOC PICKETT MD Oct 11, 2024 14:09
--- NOTE | 2024-10-11 14:36 | DVH ---
CHEST RADIOGRAPH Indication: upper abd pain n/v Technique: Single frontal view of the chest was obtained Comparison: XY CHEST XRAY 1 VIEW on DOS: 10/18/22, XY CHEST PORTABLE on DOS: 10/14/22 FINDINGS: Lines and Tubes: None Lungs: No focal consolidation. Mild diffuse interstitial prominence. Right lower lung zone and left mid to lower lung zone Linear densities. Pleura: No effusion. No pneumothorax. Cardiomediastinal contours: [id number] cardiomegaly. Bones: No acute osseous abnormality. Left upper arm, axillary and subclavian vascular stent is noted. Surgical clips are noted within the left axilla. IMPRESSION: Pulmonary vascular congestion with right lower lung zone and left mid to lower lung zone atelectasis.
--- NOTE | 2024-10-11 14:49 | DVH ---
CLINICAL HISTORY: L sided headache, n/v TECHNIQUE: Helical scanning was performed of the head from the skull base to the vertex. Multiplanar reconstructions were performed. This exam was performed according to our departmental dose optimizat ion program. Up-to-date CT equipment and radiation dose reduction techniques are utilized as appropri ate. CTDI 60.8 DLP 02/21/95 .8 COMPARISON: None FINDINGS: There is no evidence for acute intracranial hemorrhage, acute ischemic changes, mass, mass effect, or extra-axial fluid collection. There is no hydrocephalus or midline shift. There is no effacement of the cerebral sulci and basal subarachnoid cisterns. The kowalski-white matter differentiation is well arley ntained. The imaged paranasal sinuses are clear. There has been bilateral cataract extraction. The mary is em pty. IMPRESSION: NO ACUTE INTRACRANIAL ABNORMALITY SEEN.
[2024-10-11 14:57] LABS: Hematocrit 35.2 % (36.0-46.0); Hemoglobin 11.7 g/dL (12.2-16.2); Mean Corpuscular Hemoglobin 31.7 pg (28.0-32.0); Mean Corpuscular Volume 95.4 fL (80.0-100.0); Nucleated Red Blood Cells % 0.1 %
--- NOTE | 2024-10-11 15:02 | DVH ---
Exam: CT CT AB PEL WO CON-NO ORAL OR IV History: Upper abdominal pain, nausea and vomiting Comparison Study: None TECHNIQUE: Multidetector CT of the abdomen and pelvis was performed from lung bases to pubic symphysi s. Imaging was performed without IV contrast. Axial, coronal, and sagittal multiplanar reformats were obtained from the axial data set by the technologist. RADIATION DOSE: DLP 2559.71 mGy.cm; CTDI vol 60.82 mGy. Findings: Lungs: Trace bilateral pleural effusions. The lungs are otherwise clear. Heart: Mild cardiomegaly. Severe coronary atherosclerosis. Liver: Mild biliary ductal dilatation. Gallbladder: Cholecystectomy. Spleen: Unremarkable Pancreas: Unremarkable Adrenals: Unremarkable Kidneys: Bilateral renal atrophy. Right renal cysts. GI tract: Unremarkable : Myomatous uterus Vasculature: Moderate to severe aortoiliac atherosclerosis. Lymphadenopathy: Absent Peritoneum: Mild pelvic ascites. Musculoskeletal: Mild multilevel degenerative changes of the thoracolumbar spine. Severe compression fracture of T8, no retropulsion. Soft tissues: Unremarkable Impression: 1. No acute abdominopelvic abnormalities. 2. Mild pelvic ascites, nonspecific. 3. Trace bilateral pleural effusions.
[2024-10-11 15:15] LABS: Alanine Aminotransferase 12 U/L (7-40); Albumin 4.6 g/dL (3.2-4.8); Anion Gap 12 (5-15); BUN/Creatinine Ratio 7.2 (10.0-20.0); Bilirubin, Total 0.5 mg/dL (0.2-1.0); Glucose 96 mg/dL (74-106); Potassium 3.7 mmol/L (3.5-5.1); Total Protein 7.8 g/dL (5.7-8.2)
[2024-10-11 15:24] LABS: Alkaline Phosphatase 274 U/L (46-116); Blood Urea Nitrogen 25 mg/dL (9-23); Calcium 8.3 mg/dL (8.7-10.4); Carbon Dioxide 31 mmol/L (20-31); Chloride 92 mmol/L (98-107); Sodium 135 mmol/L (136-145)
[2024-10-11 15:40] LABS: Lipase 29 U/L (12-53)
[2024-10-11] MEDS: hydrALAZINE HCL 20 MG/ML VL IV ONE (19:50)
[2024-10-11] MEDS: MORPHINE SULFATE 4 MG/ML SYR/VIAL IV ONE (20:00)
[2024-10-11] MEDS: ONDANSETRON HCL 4 MG/2 ML VIAL IV ONE (20:00)
[2024-10-11] MEDS ORDERED: ACETAMINOPHEN 325 MG TAB PO PRN (22:00)
[2024-10-11] MEDS ORDERED: DEXTROSE (50%) 50ML SYRG IV PRN (22:00)
[2024-10-11] MEDS: SODIUM CHLOR 0.9% PF (SALINE LOCK) 10ML VIAL/SYR IV SCH (23:25)
--- NOTE | 2024-10-11 23:27 | DVHHP2 ---
History of Present Illness Reason for Visit: Vascular headache History of Present Illness The patient is a 64-year-old female with past medical history of anemia, thyroid disease, diabetes mellitus, hypertension, and end-stage renal disease on hemodialysis who presented to [facility] ED with complaint of headache. Patient reports she has been experiencing periorbital headache radiating to the left parietal area, associated with nausea, vomiting, getting worse that prompted this visit. Patient was seen and evaluated in the ED, laboratory data shows WBC 3.9, hemoglobin 11.7, hematocrit 35.2, platelets 170, sodium 135, potassium 3.7, BUN 25, creatinine 3.49, GFR 14, glucose 96, calcium 8.3, BNP 1285.60, troponin 36, alkaline phos 274, lipase 29, blood pressure 149/54, heart rate 67, temperature 98.0 F, O2 saturation 99% on oxygen. Head CT showed no acute intracranial abnormality. Nephrology will follow the patient, please see medication orders section in the computer. On my assessment, patient denied chest pain, no headache, no dizziness, no diaphoresis, currently on oxygen, no nausea, no vomiting, no fever, no chills. Patient was admitted for further evaluation and medical management. Past Medical History Anemia, CKF, DM, ESRD, HTN, Thyroid disease Past Surgical History Left upper extremity AV fistula Family History Reviewed, noncontributory to the management of this case. Past Social History The patient lives at home, denies smoking, alcohol or illicit drugs abuse. Review of Systems Constitutional: Yes: Weakness; No: Fever, Chills, Sweats, Malaise, Other Eyes: No: Pain, Vision change, Conjunctivae inflammation, Eyelid inflammation, Other, Redness ENT: No: Ear pain, Ear discharge, Nose pain, Nose discharge, Nose congestion, Mouth pain, Mouth swelling, Throat pain, Throat swelling, Other Respiratory: Shortness of breath; No: Cough, Dry, SOB with excertion, Wheezing, Hemoptysis, Pleuritic Pain, Sputum, Wheezing, Other Cardiovascular: No: Chest Pain, Palpitations, Orthopnea, Paroxysmal Noc. Dyspnea, Edema, Lt Headedness, Other Gastrointestinal: No: Nausea, Vomiting, Abdominal Pain, Diarrhea, Constipation, Melena, Hematochezia, Other Genitourinary: No Dysuria, No Frequency, No Incontinence, No Hematuria, No Retention; Other (On hemodialysis, left upper arm AV fistula.) Musculoskeletal: No: other, neck pain, shoulder pain, arm pain, back pain, hand pain, leg pain, foot pain Skin: No: Rash, Lesions, Jaundice, Bruising, Other Neurological: No: Weakness, Numbness, Incoordination, Change in speech, Confusion, Seizures, Other Allergies: Coded Allergies: NO KNOWN ALLERGIES (Unverified , 10/14/22) Medications Current Medications Medications Dose Ordered Sig/Ashley Route Start Time Stop Time Status Last Admin Dose Admin Aspirin 81 mg DAILY PO 10/12/24 10:00 Clopidogrel Bisulfate 75 mg DAILY PO 10/12/24 10:00 Sevelamer HCl 800 mg TIDWM PO 10/12/24 08:00 Multivit/Ca Carb/ B Cmplx/FA/Prenat 1 tab DAILY PO 10/12/24 10:00 Carvedilol 3.125 mg Q12HR PO 10/11/24 22:00 Calcium Acetate 667 mg TIDWMEALS PO 10/12/24 08:00 Levothyroxine Sodium 150 mcg QAM@0600 PO 10/12/24 06:00 Hydralazine HCl 10 mg Q6HP PRN IV 10/11/24 22:00 Diagnostic Test (Pha) 1 strip ACHS 10/11/24 22:00 Insulin Human Regular ACHS SC 10/11/24 22:00 Dextrose 50 ml UD PRN IV 10/11/24 22:00 Sodium Chloride 10 ml Q8HR IV 10/11/24 22:00 10/11/24 23:25 10 ML Acetaminophen/ Hydrocodone Bitart 1 tab Q4HP PRN PO 10/11/24 22:00 Ondansetron HCl 4 mg Q4HP PRN IV 10/11/24 22:00 Docusate Sodium 100 mg BIDPRN PRN PO 10/11/24 22:00 Acetaminophen 650 mg Q6HP PRN PO 10/11/24 22:00 Exam Vital Signs Vital Signs Date Time Temp Pulse Resp B/P (MAP) Pulse Ox O2 Delivery O2 Flow Rate FiO2 10/11/24 20:30 67 13 149/54 (85) 99 10/11/24 19:45 98.0 98.0 10/11/24 19:45 Nasal Cannula* 2 28 General Appearance: Alert, Oriented X3, Cooperative, No acute distress HEENT: Atraumatic, PERRLA, EOMI, Mucous membr. moist/pink Respiratory: Normal air movement Cardiovascular: Regular rate, Normal S1, Normal S2, No murmurs Abdominal: Normal bowel sounds, Soft, No tenderness, No hepatospenomegaly, No masses Extremities: No clubbing, No cyanosis, No edema, Normal pulses, No tenderness/swelling Skin: No rashes, No significant lesion Neuro: Normal speech, Normal tone, Sensation intact, Cranial nerves 3-12 NL, Reflexes 2+, Other (Generalized weakness) Psych/Mental Status: Mental status NL, Mood NL Labs/Xrays Labs Test 10/11/24 18:48 10/11/24 14:42 Range/Units Troponin I High Sensitivity 36 *H </=34 ng/L Thyroid Stimulating Hormone (TSH) 0.16 L 0.55-4.78 uIU/mL White Blood Count 3.9 L 4.4-10.8 10^3/uL Red Blood Count 3.69 L 4.0-5.20 10^6/uL Hemoglobin 11.7 L 12.2-16.2 g/dL Hematocrit 35.2 L 36.0-46.0 % Mean Corpuscular Volume 95.4 80.0-100.0 fL Mean Corpuscular Hemoglobin 31.7 28.0-32.0 pg Mean Corpuscular Hemoglobin Concent 33.2 32.0-36.0 g/dL Red Cell Distribution Width 13.9 11.8-14.3 % Platelet Count 170 140-450 10^3/uL Mean Platelet Volume 7.7 6.9-10.8 fL Neutrophils (%) (Auto) 59.2 37.0-80.0 % Lymphocytes (%) (Auto) 27.8 10.0-50.0 % Monocytes (%) (Auto) 9.7 0.0-12.0 % Eosinophils (%) (Auto) 2.5 0.0-7.0 % Basophils (%) (Auto) 0.8 0.0-2.0 % Neutrophils # (Auto) 2.3 1.6-8.6 10 ^3/uL Lymphocytes # (Auto) 1.1 0.4-5.4 10 ^3/uL Monocytes # (Auto) 0.4 0-1.3 10 ^3/uL Eosinophils # (Auto) 0.1 0-0.8 10 ^3/uL Basophils # (Auto) 0 0-0.2 10 ^3/uL Nucleated Red Blood Cells 0.1 % Sodium Level 135 L 136-145 mmol/L Potassium Level 3.7 3.5-5.1 mmol/L Chloride Level 92 L 98-107 mmol/L Carbon Dioxide Level 31 20-31 mmol/L Anion Gap 12 5-15 Blood Urea Nitrogen 25 H 9-23 mg/dL Creatinine 3.49 H 0.550-1.02 mg/dL Glomerular Filtration Rate Calc 14 >90 mL/min BUN/Creatinine Ratio 7.2 L 10.0-20.0 Serum Glucose 96 74-106 mg/dL Calcium Level 8.3 L 8.7-10.4 mg/dL Total Bilirubin 0.5 0.2-1.0 mg/dL Aspartate Amino Transferase (AST) 23 13-40 U/L Alanine Aminotransferase (ALT) 12 7-40 U/L Alkaline Phosphatase 274 H 46-116 U/L B-Type Natriuretic Peptide 1285.60 0-100 pg/mL Total Protein 7.8 5.7-8.2 g/dL Albumin 4.6 3.2-4.8 g/dL Lipase 29 12-53 U/L PATIENT: CHANCE FRANCISCT: [id number] UNIT: [id number] : 1960 LOC: ER ROOM / BED: / AGE / SEX: 64 / F ADM STATUS: REG ER SERVICE 1408 ORDERING PHYSICIAN: NGOC PICKETT MD PROCEDURE(s): ABPL - CT AB PEL WO CON-NO ORAL OR IV REASON: Upper abdominal pain, nausea and vomiting ORDER NUMBER(s): [id number], ACCESSION NUMBER(s): [id number] Exam: CT CT AB PEL WO CON-NO ORAL OR IV History: Upper abdominal pain, nausea and vomiting Comparison Study: None TECHNIQUE: Multidetector CT of the abdomen and pelvis was performed from lung bases to pubic symphysis. Imaging was performed without IV contrast. Axial, coronal, and sagittal multiplanar reformats were obtained from the axial data set by the technologist. RADIATION DOSE: DLP 2559.71 mGy.cm; CTDI vol 60.82 mGy. Findings: Lungs: Trace bilateral pleural effusions. The lungs are otherwise clear. Heart: Mild cardiomegaly. Severe coronary atherosclerosis. Liver: Mild biliary ductal dilatation. Gallbladder: Cholecystectomy. Spleen: Unremarkable Pancreas: Unremarkable Adrenals: Unremarkable Kidneys: Bilateral renal atrophy. Right renal cysts. GI tract: Unremarkable : Myomatous uterus Vasculature: Moderate to severe aortoiliac atherosclerosis. Lymphadenopathy: Absent Peritoneum: Mild pelvic ascites. Musculoskeletal: Mild multilevel degenerative changes of the thoracolumbar spine. Severe compression fracture of T8, no retropulsion. Soft tissues: Unremarkable Impression: 1. No acute abdominopelvic abnormalities. 2. Mild pelvic ascites, nonspecific. 3. Trace bilateral pleural effusions. ORDERING PHYSICIAN: NGOC PICKETT MD PROCEDURE(s): HWOCT - HEAD WITHOUT CONTRAST REASON: L sided headache, n/v ORDER NUMBER(s): [id number], ACCESSION NUMBER(s): [id number] CLINICAL HISTORY: L sided headache, n/v TECHNIQUE: Helical scanning was performed of the head from the skull base to the vertex. Multiplanar reconstructions were performed. This exam was performed according to our departmental dose optimization program. Up-to-date CT equipment and radiation dose reduction techniques are utilized as appropriate. CTDI 60.8 DLP 02/21/95 .8 COMPARISON: None FINDINGS: There is no evidence for acute intracranial hemorrhage, acute ischemic changes, mass, mass effect, or extra-axial fluid collection. There is no hydrocephalus or midline shift. There is no effacement of the cerebral sulci and basal subarachnoid cisterns. The kowalski-white matter differentiation is well maintained. The imaged paranasal sinuses are clear. There has been bilateral cataract ext raction. The mary is empty. IMPRESSION: NO ACUTE INTRACRANIAL ABNORMALITY SEEN. ORDERING PHYSICIAN: NGOC PICKETT MD PROCEDURE(s): CXRP - CHEST PORTABLE REASON: upper abd pain n/v ORDER NUMBER(s): [id number], ACCESSION NUMBER(s): [id number] CHEST RADIOGRAPH Indication: upper abd pain n/v Technique: Single frontal view of the chest was obtained Comparison: XY CHEST XRAY 1 VIEW on DOS: 10/18/22, XY CHEST PORTABLE on DOS: 10/14/22 FINDINGS: Lines and Tubes: None Lungs: No focal consolidation. Mild diffuse interstitial prominence. Right lower lung zone and left mid to lower lung zone Linear densities. Pleura: No effusion. No pneumothorax. Cardiomediastinal contours: [id number] cardiomegaly. Bones: No acute osseous abnormality. Left upper arm, axillary and subclavian vascular stent is noted. Surgical clips are noted within the left axilla. IMPRESSION: Pulmonary vascular congestion with right lower lung zone and left mid to lower lung zone atelectasis. SEPSIS Sepsis Screen Date sepsis recognized/suspect: Oct 11, 2024 Time Sepsis recognized/suspect: 0 Recent Procedure: No On Antibiotic Therapy: No Respiratory Rate >20: No Heart Rate >90: No Temp<36 C (96.8 F) or >38.3 C: No SBP <90 or MAP <65 mmHG: No New Acute Mental Status Change: No Is the patient on CPAP, BIPAP,: No Physician Orders Band Straightener (10/11/24 ) Clopidogrel Bisulfate (Plavix) (10/12/24 10:00) Sevelamer (Renagel) (10/12/24 08:00) B-Complex W/ C & Folic Tablet (Nephro-Vi (10/12/24 10:00) Carvedilol Tablet (Coreg Tablet) (10/11/24 22:00) *[facility] (10/11/24 21:56) Calcium Acetate Capsule (Phoslo Capsule) (10/12/24 08:00) Levothyroxine Tablet (Synthroid Tablet) (10/12/24 06:00) Hydralazine Injection (Apresoline Inject (10/11/24 22:00) Glucose Blood (Accu-Chek Comfort Curve T (10/11/24 22:00) Insulin R (Human) (Insulin R) (10/11/24 22:00) Dextrose 50% Syringe (10/11/24 22:00) Allergies (10/11/24 21:56) Code Status (10/11/24 21:56) Renal Standard(2gna,3gk,Lopho) (10/12/24 Breakfast) Sodium Chloride Lock (Saline Lock Ns) (10/11/24 22:00) Oxygen Per Hour (10/11/24 21:56) Hydrocodone-Acet 5/325mg Tab ([place] 5/32 (10/11/24 22:00) Ondansetron Hcl (Zofran) (10/11/24 22:00) Docusate Sodium Capsule (Colace Capsule) (10/11/24 22:00) Complete Blood Count (10/12/24 04:00) Comprehensive Metabolic Panel (10/12/24 04:00) Echo 2d Mode Cardiac Dop (10/11/24 21:56) Condition: Serious (10/11/24 21:56) Acetaminophen Tablet (Tylenol Tablet) (10/11/24 22:00) Bedrest With Bathroom Privileg (10/11/24 21:56) Sequential Compression Device (10/11/24 ) Aspirin Tablet (10/12/24 10:00) Admit (10/11/24:) Nitroglycerin Sublingual (Ntrostat Subli (10/11/24 23:30) Morphine Sulfate Injection (10/11/24 23:30) Stat Ekg For Chest Pain (10/11/24 23:25) Notify Md Of Changes From Base (10/11/24 23:25) Document Preparation Specialist For 24 Hours (10/11/24 23:25) Emergency Dysrhythmia Protocol (10/11/24 23:25) Rhythm Strips Once Every Shift (10/11/24 23:25) Oxygen By Nasal Cannula (10/11/24:25) Vital Signs Date Time Temp Pulse Resp B/P (MAP) Pulse Ox O2 Delivery O2 Flow Rate FiO2 10/11/24 20:30 67 13 149/54 (85) 99 10/11/24 20:30 67 13 149/54 10/11/24 20:06 65 10/11/24 20:00 70 17 196/87 10/11/24 19:50 196/87 10/11/24 19:45 98.0 70 17 196/87 (123) 98 98.0 10/11/24 19:45 Nasal Cannula* 2 28 Laboratory Tests Test 10/11/24 14:42 White Blood Count 3.9 10^3/uL (4.4-10.8) L Medications Medications Dose Ordered Sig/Ashley Route Start Time Stop Time Status Last Admin Dose Admin Hydralazine HCl 10 mg ONCE ONCE IV 10/11/24 18:45 10/11/24 18:46 DC 10/11/24 19:50 10 MG Morphine Sulfate 4 mg ONCE ONCE IV 10/11/24 14:15 10/11/24 14:16 DC 10/11/24 20:00 4 MG Ondansetron HCl 4 mg ONCE ONCE IV 10/11/24 14:15 10/11/24 14:16 DC 10/11/24 20:00 4 MG Sodium Chloride 10 ml Q8HR IV 10/11/24 22:00 10/11/24 23:25 10 ML Assessment/Plan Assessment/Plan Vascular headache Hypertensive urgency Fluid overload Acute exacerbation of congestive heart failure End-stage renal disease on hemodialysis Plan 1. Admit to telemetry unit 2. Breathing treatment 3. Pain control management 4. Management of fluids and electrolytes 5. Consultation for Nephrology 6. Diagnostic tests head CT 7. DVT prophylaxis-on SCDs 8. Repeat labs CBC, CMP in a.m. 9. Continue with current medical management 10. Treatment plan discussed with patient and RN. Patient verbalized understanding. Plan discussed with: Patient, Other (RN) My Orders Orders - NOE CORREA DNP Procedure Category Date Status Time Clopidogrel Bisulfate PHA 10/12/24 In Process (Plavix) 10:00 Sevelamer (Renagel) PHA 10/12/24 In Process 08:00 B-Complex W/ C & PHA 10/12/24 In Process Folic Tablet 10:00 Carvedilol Tablet PHA 10/11/24 In Process (Coreg Tablet) 22:00 *[facility] CONS 10/11/24 Transmitted -[place] 21:56 Calcium Acetate PHA 10/12/24 In Process Capsule (Phoslo 08:00 Levothyroxine Tablet PHA 10/12/24 In Process (Synthroid Tablet) 06:00 Hydralazine Injection PHA 10/11/24 In Process (Apresoline Inject 22:00 Glucose Blood PHA 10/11/24 In Process (Accu-Chek Comfort 22:00 Insulin R (Human) PHA 10/11/24 In Process (Insulin R) 22:00 Dextrose 50% Syringe PHA 10/11/24 In Process 22:00 Allergies JADIEL 10/11/24 In Process 21:56 Code Status CODE 10/11/24 Transmitted 21:56 Renal DIET 10/12/24 Transmitted Standard(2gna,3gk,Lopho) Breakfast Sodium Chloride Lock PHA 10/11/24 In Process (Saline Lock Ns) 22:00 Oxygen Per Hour RT 10/11/24 Transmitted 21:56 Hydrocodone-Acet PHA 10/11/24 In Process 5/325mg Tab ([place] 22:00 Ondansetron Hcl PHA 10/11/24 In Process (Zofran) 22:00 Docusate Sodium PHA 10/11/24 In Process Capsule (Colace 22:00 Complete Blood Count LAB 10/12/24 Verified 04:00 Comprehensive LAB 10/12/24 Verified Metabolic Panel 04:00 Echo 2d Mode Cardiac US 10/11/24 Logged DOP 21:56 Condition: Serious JADIEL 10/11/24 In Process 21:56 Acetaminophen Tablet PHA 10/11/24 In Process (Tylenol Tablet) 22:00 Bedrest With Bathroom JADIEL 10/11/24 In Process Privileg 21:56 Sequential JADIEL 10/11/24 In Process Compression Device Aspirin Tablet PHA 10/12/24 In Process 10:00 Admit ADMIT 10/11/24 Verified 23:25 Nitroglycerin [facility] 10/11/24 Verified Sublingual (Ntrostat 23:30 Morphine Sulfate PHA 10/11/24 Verified Injection 23:30 Stat Ekg For Chest [facility] 10/11/24 Verified Pain 23:25 Notify Md Of Changes [facility] 10/11/24 Verified From Base 23:25 Document Preparation Specialist For [facility] 10/11/24 Verified 24 Hours 23:25 Emergency Dysrhythmia [facility] 10/11/24 Verified Protocol 23:25 Rhythm Strips Once [facility] 10/11/24 Verified Every Shift 23:25 Oxygen By Nasal RT 10/11/24 Verified Cannula 23:25 Problem List: (1) Vascular headache (2) Hypertensive urgency (3) Fluid overload (4) Acute exacerbation of congestive heart failure (5) End-stage renal disease on hemodialysis Date of Service: Oct 11, 2024 Billing Provider: NOE CORREA DNP Common Visit Codes: 06172-[id number] INP/OBS CARE (HIGH) NOE CORREA DNP Oct 11, 2024 23:27
[2024-10-11] MEDS ORDERED: MORPHINE SULFATE INJ 2 MG/ml SYRG IV PRN (23:30)
[2024-10-11] MEDS ORDERED: NITROGLYCERIN 0.4 MG SL TAB SL PRN (23:30)
[2024-10-11] MEDS: CALCIUM GLUC 1,000mg/50ml-NS 50 ML IV ONE (23:36)
[2024-10-11] MEDS: CARVEDILOL 3.125 MG TAB PO SCH (23:36)
[2024-10-11] MEDS: ACCU-CHEK COMFORT CURVE STRIP VI SCH (23:36)
[2024-10-11] MEDS: InsuLIN REG 1unit/0.01ml Soln (100units/ml) SC SCH (23:37)
[2024-10-12] MEDS: LEVOTHYROXINE SODIUM 50 MCG TAB PO SCH (06:57)
[2024-10-12 07:01] LABS: Hematocrit 32.6 % (36.0-46.0); Hemoglobin 11.1 g/dL (12.2-16.2); Mean Corpuscular Hemoglobin 32.3 pg (28.0-32.0); Mean Corpuscular Volume 94.9 fL (80.0-100.0); Nucleated Red Blood Cells % 0.2 %
[2024-10-12 07:06] LABS: Alanine Aminotransferase 11 U/L (7-40); Anion Gap 12 (5-15); BUN/Creatinine Ratio 5.9 (10.0-20.0); Carbon Dioxide 30 mmol/L (20-31); Glucose 89 mg/dL (74-106); Potassium 4.3 mmol/L (3.5-5.1); Total Protein 6.6 g/dL (5.7-8.2)
[2024-10-12 07:07] LABS: Albumin 3.8 g/dL (3.2-4.8); Bilirubin, Total 0.6 mg/dL (0.2-1.0)
[2024-10-12 07:11] LABS: Alkaline Phosphatase 235 U/L (46-116); Blood Urea Nitrogen 26 mg/dL (9-23); Calcium 8.0 mg/dL (8.7-10.4); Chloride 92 mmol/L (98-107); Sodium 134 mmol/L (136-145)
[2024-10-12 07:36] VITALS: PULSE 61; RESP 10; O2SAT 100
[2024-10-12] MEDS: SEVELAMER 800 MG TAB PO SCH (08:37)
[2024-10-12] MEDS: CALCIUM ACETATE 667 MG CAP PO SCH (08:37)
[2024-10-12] MEDS: B-COMPLEX W/ C & FOLIC ACID(NEPHROVITE TAB) PO SCH (10:01)
[2024-10-12] MEDS: CLOPIDOGREL BISULFATE 75 MG TAB PO SCH (10:02)
[2024-10-12] MEDS: ONDANSETRON HCL 4 MG/2 ML VIAL IV PRN (11:34)
--- NOTE | 2024-10-12 13:21 | DVH ---
CHEST RADIOGRAPH Indication: aspiration Technique: Single frontal view of the chest was obtained Comparison: XY CHEST PORTABLE on DOS: 10/11/24, XY CHEST XRAY 1 VIEW on DOS: 10/18/22, XY CHEST PORTABL E on DOS: 10/14/22 FINDINGS: Lines and Tubes: None Lungs: No focal consolidation. Pleura: No effusion. No pneumothorax. Cardiomediastinal contours: Cardiomegaly. Bones: No acute osseous abnormality. IMPRESSION: Cardiomegaly with CHF.
--- NOTE | 2024-10-12 13:24 | DVHSR ---
APPROVED REPORT EXAM: Two-dimensional and M-mode echocardiogram with Doppler and color Doppler. Blood Pressure: 156/48 mmHg INDICATION CHF exacerbation, unspecified RISK FACTORS Height: 64, Weight: 179 DIMENSIONS LVDd4.8 (3.8-5.7cm)LA (2D)4.8 (1.9-4.0cm)Aortic Root3.1 (2.0-3.7cm) LVDs3.3 (2.5-4.0cm)LA (MM) (1.9-4.0cm)Aortic Cusp Exc1.4 (1.5-2.0cm) EF (%) 60.0 (55-70%)Rt. Atrium4.5 (1.9-4.0cm)Asc. Aorta cm Mitral Valve MitralMitral Stenosis E wave1.39m/sMV Mean GR.3mmHg A wave0.75m/sMV Peak GR.129mmHg E/A ratio1.92D MVAcm2 DECEL [id number] 1/2 [id number] IVRTmsDop MVA3.00cm2 Aortic Valve Aortic ValveAortic Stenosis V10.93m/Astrid Mean GR.9mmHg V22.09m/Astrid Peak GR.17mmHg LVOT Diameter2.1 (1.8-2.4cm)Doppler AVA1.54cm2 Pulmonic Valve V21.19m/s Tricuspid Valve TR Velocity3.16m/s [id number] Conclusion lvef 55% moderate LVH mild tricuspid regurg moderate mitral regurg
--- NOTE | 2024-10-12 13:48 | DVH ---
Procedure: CT HEAD WITHOUT CONTRAST Study Date and Requested Time: 10/12/2024 01:08 PM History: ALTER MENTAL STATUS Comparison: CT HEAD WITHOUT CONTRAST on DOS: 10/11/24, CT MAXILLOFACIAL WITHOUT on DOS: 01/13/23 Dose: CTDI: 49.32 mGy DLP: 863.9 mGycm Technique: Multiplanar images obtained through the brain without intravenous contrast. Findings: Normal brain volume and formation. Mild chronic small vessel ischemic changes. No hemorrhages, masses, mass effect, midline shift, herniation or cytotoxic edema following a large v ascular territory. No intra-axial or extra-axial fluid collections. No evidence of hydrocephalus. The basal cisterns are patent. Unchanged Nonspecific Focus of calcification of the left basal ganglia. Nonspecific Empty sella. The cerebellar tonsils are in normal position. The cerebellum is unremarkabl e. Bilateral lens replacement. Otherwise, orbits and globes are unremarkable. The paranasal sinuses and mastoids are clear. There are no worrisome calvarial lesions. Impression: No evidence of acute intracranial abnormality.
[2024-10-12] MEDS: hydrALAZINE HCL 20 MG/ML VL IV PRN (15:33)
[2024-10-12] MEDS: hydrALAZINE HCL 20 MG/ML VL IV ONE (15:33)
--- NOTE | 2024-10-12 18:31 | DVHPNRES ---
Progress Note Date Seen: Oct 12, 2024 Resident Creating Document: RAUDEL BREWSTER RESIDENT Medical Necessity Reason Pt with a Central, PICC or Fol: No Subjective Review of Systems This is a 64-year-old female with past medical history of anemia, diabetes mellitus, hypertension,hypothyroidism and ESRD on hemodialysis who came to the ER with the complaint of headache since almost 3 weeks. The patient states that the pain starts in her left eye and radiates to the back of her head and the left shoulder. She describes it as a pounding and stinging sensation. She also has photophobia associated with it along with tearing of the eyes. She also has double vision. The patient also has nausea and had 1 episode of vomiting while in the ER post which she was placed on 15 L of oxygen was brought back down to 6 L. Denies any fever or chills. Her systolic blood pressure was found to be raised in the 190s which 1 dose of IV hydralazine [address] head was done which was unremarkable. Abdominal CT revealed mild ascites. Echo revealed lvef 55% with moderate LVH ,mild TR and moderate MR. Nephrology was consulted for her high BUN and creatinine values. Uses 3 L of oxygen at home. Past medical history: ESRD on dialysis, diabetes mellitus, hypertension,stroke 5 years ago,CHF,hypothyroidism Past surgical history: Left upper extremity AV fistula Social & Personal history: lives at home with family Smoking: Denies Alcohol: Denies Drugs: Denies Allergies: no known allergies Patient seen and examined at bedside. Patient is alert and oriented to time, place person and responding to all questions. Her face looks puffy and swollen. Eyes: No Pain, No Vision change, No Conjunctivae inflammation, No Eyelid inflammation No Redness ENT: No Ear pain, No Ear discharge, No Nose pain, No Nose discharge, No Nose congestion, No Mouth pain, No Mouth swelling, No Throat pain, No Throat swelling Cardiovascular: No Chest Pain, No Palpitations, Orthopnea, No Paroxysmal No Dyspnea, No Edema, No Lt Headedness Respiratory: No Cough, No Dry,Shortness of breath, No SOB with exertion, No Wheezing, No Hemoptysis, No Pleuritic Pain, No Sputum Gastrointestinal: No Nausea, No Vomiting, No Abdominal Pain, No Diarrhea, No Constipation, No Melena, No Hematochezia Genitourinary: No Dysuria, No Frequency, No Incontinence, No Hematuria, No Retention Objective vital signs Vital Sign Date Time Temp Pulse Resp B/P (MAP) Pulse Ox O2 Delivery O2 Flow Rate FiO2 10/12/24 16:53 138/72 10/12/24 16:00 98.3 69 16 100 98.3 10/12/24 13:00 Nasal Cannula* 6 44 medications Current Medications Medications Dose Ordered Sig/Ashley Route Start Time Stop Time Status Last Admin Dose Admin Aspirin 81 mg DAILY PO 10/12/24 10:00 10/12/24 10:01 81 MG Clopidogrel Bisulfate 75 mg DAILY PO 10/12/24 10:00 10/12/24 10:02 75 MG Sevelamer HCl 800 mg TIDWM PO 10/12/24 08:00 10/12/24 11:34 800 MG Multivit/Ca Carb/ B Cmplx/FA/Prenat 1 tab DAILY PO 10/12/24 10:00 10/12/24 10:01 1 TAB Carvedilol 3.125 mg Q12HR PO 10/11/24 22:00 10/12/24 10:01 3.125 MG Calcium Acetate 667 mg TIDWMEALS PO 10/12/24 08:00 10/12/24 11:34 667 MG Levothyroxine Sodium 150 mcg QAM@0600 PO 10/12/24 06:00 10/12/24 06:57 150 MCG Hydralazine HCl 10 mg Q6HP PRN IV 10/11/24 22:00 10/12/24 15:33 10 MG Diagnostic Test (Pha) 1 strip ACHS 10/11/24 22:00 10/12/24 17:08 1 STRIP Insulin Human Regular ACHS SC 10/11/24 22:00 Dextrose 50 ml UD PRN IV 10/11/24 22:00 Sodium Chloride 10 ml Q8HR IV 10/11/24 22:00 10/12/24 15:28 10 ML Acetaminophen/ Hydrocodone Bitart 1 tab Q4HP PRN PO 10/11/24 22:00 Ondansetron HCl 4 mg Q4HP PRN IV 10/11/24 22:00 10/12/24 11:34 4 MG Docusate Sodium 100 mg BIDPRN PRN PO 10/11/24 22:00 Acetaminophen 650 mg Q6HP PRN PO 10/11/24 22:00 Nitroglycerin 0.4 mg Q5MINP PRN SL 10/11/24 23:30 Morphine Sulfate 2 mg Q30M PRN IV 10/11/24 23:30 Clonidine HCl 0.1 mg BID PO 10/12/24 15:30 Nifedipine 60 mg DAILY PO 10/13/24 10:00 Examination General Appearance: Cooperative. Well developed. Well nourished. NAD,looks in mild distress with swollen,puffy face. Av fistula present on left upper arm with thrill. Head Exam: Normal inspection Neck Exam: Normal inspection. Non-tender. Normal alignment Pulmonary/Respiratory: Chest non-tender. Clear bilateral breath sounds, no crackles, no wheezing. Cardiovascular/Chest: Regular rate and rhythm. No murmurs. No JVD. Peripheral Pulses: 2+ Radial (R). 2+ Radial (L). 2+ Pedal (R). 2+ Pedal (L) Abdominal Exam: Normal bowel sounds. Soft. normal abdomen, no visible veins, Nontender. No hepatospenomegaly. No masses Ankle Exam: Negative ankle edema Lower extremities:1+ edema Neuro/Mental Status: A&O x4. Coherent. Thoughts/Psych: Normal thought pattern. Appropriate mood and affect. Good judgement and insight Skin Exam: Normal inspection. Normal color. Warm. Dry laboratory and microbiology Laboratory Tests 10/12/24 06:05 Test 10/12/24 06:05 Range/Units Serum Glucose 89 74-106 mg/dL Labs and/or images reviewed: Labs reviewed by me, Image(s) reviewed by me Problem List/Assessment/Plan Problem List/Assessment/Plan intractable headache likely cluster headache tyelenol Intractable vomiting CT head unremarkable Hypertensive urgency hydralazine 10mg prn Fluid overload Acute exacerbation of congestive heart failure with preserved EF 55% oxygen on nasal cannula 10 L End-stage renal disease on hemodialysis Acute hypoxic respiratory failure On 10L of oxygen shifted to 66l, her baseline at home is 3L Hypothyroidism, controlled Diabetes mellitus,controlled PUD prophylaxis: Not given DVT prophylaxis: Not given Goals of care: Full code, discussed for >16 minutes on 10/12/2024 Plan discussed with patient Plan discussed with Dr Vazquez Plan discussed with: Patient, Son My Orders My Orders Orders - RAUDEL BREWSTER RESIDENT Procedure Category Date Status Time Chest Xray 1 View XY 10/12/24 Resulted 12:[address] 10/12/24 Resulted 13:02 Date of Service: Oct 12, 2024 Billing Provider: BLANQUITA VAZQUEZ MD Common Visit Codes: [id number] INP/OBS CARE(HIGH) Secondary Visit Codes: [id number] CARE PLAN 30 MINUTES ABEL BREWSTERTYESHA CASEY RESIDENT Oct 12, 2024 18:31 BLANQUITA VAZQUEZ MD Oct 14, 2024 20:51
--- NOTE | 2024-10-12 20:34 | DVHINCON2 ---
Date of service: Oct 12, 2024 Referring Physician Leo Reason for Consultation Headache History of Present Illness Ms. Miach Pierre is a 64 years old right-handed female with a history of hypertension, diabetes, dyslipidemia, hypothyroidism, end-stage kidney failure on him lysis, she was brought to the [facility] on 10/11/2024 with a chief complaint of acute headache. At this time, she is alert, fully oriented, her family is with her in the room, she provided the following history When she was going through hemodialysis on 10/11/2024, she developed stabbing left frontal temporal headache, which gradually evolved into intense, 10/10 in terms headache over 2 hours, with increased sensitivity to lights, noise, nausea and vomiting, she had double vision when she was looking straight forward altered why side, she has/had general weakness but no focal weakness numbness. She denies similar headache previously, he denies a history of headache WBC/HB/PLT/MCV, 10/12/2024: 3.8/11.1/157/94.9 BUN/CR, 10/12/2024: 26/4.42 HGB A1c, 08/21/23: 8.8 Liver function tests, 10/12/2024: Unremarkable TSH, 10/11/2024: 0.16 Echocardiogram, 10/12/2024: lvef 55% moderate LVH mild tricuspid regurg moderate mitral regurg CT head, 10/11/2024: NO ACUTE INTRACRANIAL ABNORMALITY SEEN. CT head, 10/12/2024: No evidence of acute intracranial abnormality. Past Medical History Hypertension, diabetes, dyslipidemia, hypothyroidism, end-stage kidney failure on hemodialysis, Past Surgical History Appendectomy Family History: Diabetes mellitus G8 MOTHER Family History Diabetes, cancer Social History She has not tobacco smoke, she denies a history of drug/alcohol abuse Allergies: Coded Allergies: NO KNOWN ALLERGIES (Unverified , 10/14/22) Home Meds Active Scripts Hydrocodone-Acetaminophen (Hydrocodone Bitartrate/AC 5-325 mg) 1 Tab Tab, 1 TAB PO QID PRN, #30 TAB Prov:PAULETTE KIM MD 08/24/23 Ibuprofen Micronized (Ibuprofen) 800 Mg Tab, 800 MG PO Q8HP PRN, #30 TAB Prov:JADYN NICHOLE 01/13/23 Reported Medications Docusate Sodium (Colace) 100 Mg Cap, 100 MG PO, CAP 10/15/22 Biotin (Vitamin H) (BIOTIN) 5 Mg Tab, 5000 MG PO, TAB 10/15/22 Hydrocodone-Acetaminophen (Hydrocodone Bitartrate/AC 5-325 mg) 1 Tab Tab, 1 TAB PO, TAB 10/15/22 Promethazine Hcl (Promethazine Hcl) 25 Mg Tab, 25 MG PO, TAB 10/15/22 Diphenoxylate W/ Atropine (Lomotil) 2.5 Mg Tab, 2.5 MCG PO, TAB 10/15/22 Loratadine (Claritin) 10 Mg Tab, 10 MG PO, TAB 10/15/22 Insulin Detemir (Levemir) Inj, 10 UNITS SC DAILY, INJ 10/15/22 Carvedilol (Carvedilol) 12.5 Mg Tab, 12.5 MG PO BID, TAB 10/15/22 Nitroglycerin (NTROSTAT SUBLINGUAL) 0.4 Mg Sl, 0.4 MG SL PRN, TAB *MAY REPEAT EVERY 5 MINUTES X 3 TOTAL IF NO RELIEF, INITIATE ANALGESIC THERAPY. NOTIFY PHYSICIAN *Do not crush. 10/15/22 Hydroxyzine Hcl (Hydroxyzine Hcl) 25 Mg Tab, 25 MG PO, TAB 10/15/22 Patiromer Sorbitex Calcium (Veltassa) 16.8 Gm Pow, 16.8 GM PO, POW 10/15/22 Losartan Potassium (Losartan Potassium) 50 Mg Tab, 1 TAB PO DAILY, #30 TAB 5 Refills 10/15/22 Levothyroxine Sodium (Levothyroxine Sodium) 150 Mcg Tab, 1 TAB PO DAILY 10/14/22 Clopidogrel Bisulfate (CLOPIDOGREL) 75 Mg Tab, 1 TAB PO DAILY 10/14/22 Aspirin (Aspirin Low Dose) 81 Mg Tab, 1 TAB PO DAILY 10/14/22 Current Medications Current Medications Medications (Trade) Dose Ordered Sig/Ashley Route PRN Reason Start Time Stop Time Status Last Admin Aspirin 81 mg DAILY PO 10/12/24 10:00 10/12/24 10:01 Clopidogrel Bisulfate (Plavix) 75 mg DAILY PO 10/12/24 10:00 10/12/24 10:02 Sevelamer HCl (Renagel) 800 mg TIDWM PO 10/12/24 08:00 10/12/24 11:34 Multivit/Ca Carb/ B Cmplx/FA/Prenat (Nephro-Nasima Tablet) 1 tab DAILY PO 10/12/24 10:00 10/12/24 10:01 Carvedilol (Coreg Tablet) 3.125 mg Q12HR PO 10/11/24 22:00 10/12/24 10:01 Calcium Acetate (Phoslo Capsule) 667 mg TIDWMEALS PO 10/12/24 08:00 10/12/24 11:34 Levothyroxine Sodium (Synthroid Tablet) 150 mcg QAM@0600 PO 10/12/24 06:00 10/12/24 06:57 Hydralazine HCl (Apresoline Injection) 10 mg Q6HP PRN IV SBP>150 10/11/24 22:00 10/12/24 15:33 Diagnostic Test (Pha) (Accu-Chek Comfort Curve T) 1 strip ACHS 10/11/24 22:00 10/12/24 17:08 Insulin Human Regular (InsuLIN R) ACHS SC 10/11/24 22:00 Dextrose 50 ml UD PRN IV Blood Sugar LESS THAN 60 10/11/24 22:00 Sodium Chloride (Saline Lock Ns) 10 ml Q8HR IV 10/11/24 22:00 10/12/24 15:28 Acetaminophen/ Hydrocodone Bitart ([place] 5/325MG Tab) 1 tab Q4HP PRN PO MODERATE PAIN (4-6 PAIN SCALE) 10/11/24 22:00 Ondansetron HCl (Zofran) 4 mg Q4HP PRN IV NAUSEA / VOMITING 10/11/24 22:00 10/12/24 11:34 Docusate Sodium (Colace Capsule) 100 mg BIDPRN PRN PO FOR CONSTIPATION 10/11/24 22:00 Acetaminophen (Tylenol Tablet) 650 mg Q6HP PRN PO PAIN SCALE 1-3 OR TEMP>100.4 10/11/24 22:00 Nitroglycerin (Ntrostat Sublingual) 0.4 mg Q5MINP PRN SL FOR CHEST PAIN 10/11/24 23:30 Morphine Sulfate 2 mg Q30M PRN IV FOR CHEST PAIN 10/11/24 23:30 Clonidine HCl (Catapres Tablet) 0.1 mg BID PO 10/12/24 15:30 Nifedipine (Procardia Xl (Time-Release)) 60 mg DAILY PO 10/13/24 10:00 Review of Systems As above, the other systems are negative Vital Signs Vital Signs Date Time Temp Pulse Resp B/P (MAP) Pulse Ox O2 Delivery O2 Flow Rate FiO2 10/12/24 18:00 70 10 155/48 (83) 100 10/12/24 16:00 98.3 98.3 10/12/24 13:00 Nasal Cannula* 6 44 Physical Exam GENERAL EXAM: General: the patient is well developed and nourished. No acute distress. HEENT: Normocephalic, neck is supple, no carotid bruits. No mass. Tenderness to palpation between the eyes, in the whole left scalp, but without local swelling, erythema, or permanent vasculatures RESPIRATORY: Normal respiratory effort with symmetrical lung expansion. Lungs clear to auscultation. CARDIOVASCULAR: Regular rate and rhythm with no murmurs. S1, S2. ABDOMEN: Soft, nontender, normal bowel sound NEUROLOGICAL: MENTAL STATUS: Awake and alert. Oriented to person, place, time and general circumstances. Able to give personal history. SPEECH, LANGUAGE, HIGHER CORTICAL FUNCTION: no aphasia or dysathria. CRANIAL NERVES: #2: Intact visual weiss to confrontation. The optic discs were sharp. #3,4,6: Pupils are equal, round and reactive. EOMs full and conjugate. No evoked. No nystagmus. But she has double vision when she is looking straight forward, or to the right side #5: Facial sensation intact in all three divisions bilaterally. Mandibular strength intact. #7: Facial muscles symmetrical and strength intact. #8: Hearing grossly normal to voice. #9,10: Uvula and soft palate rise in the midline. Swallow and voice are normal. #11: Trapezius and sternomastoid strength intact bilaterally. #12: Tongue midline. No fasciculations or atrophy. SENSATION: Sensation to touch and pinprick is normal. MOTOR: Normal tone in the upper and lower extremity. Normal muscle bulk. No fasciculations. No abnormal movements or posturing. Muscle strength of the major groups in the extremities is 4/5 without drift. REFLEXES: Deep tendon reflexes are symmetrical. No pathological reflexes. CEREBELLAR/COORDINATION: Finger to nose and heel to p[place] are normal bilaterally. GAIT/STATION: deferred. Labs/Diagnostic Data Labs Test 10/12/24 07:00 10/12/24 06:05 10/11/24 18:48 10/11/24 14:42 Range/Units POC Glucose 104 70-106 mg/dl White Blood Count 3.8 L 4.4-10.8 10^3/uL Red Blood Count 3.44 L 4.0-5.20 10^6/uL Hemoglobin 11.1 L 12.2-16.2 g/dL Hematocrit 32.6 L 36.0-46.0 % Mean Corpuscular Volume 94.9 80.0-100.0 fL Mean Corpuscular Hemoglobin 32.3 H 28.0-32.0 pg Mean Corpuscular Hemoglobin Concent 34.1 32.0-36.0 g/dL Red Cell Distribution Width 14.4 H 11.8-14.3 % Platelet Count 157 140-450 10^3/uL Mean Platelet Volume 8.1 6.9-10.8 fL Neutrophils (%) (Auto) 55.1 37.0-80.0 % Lymphocytes (%) (Auto) 29.9 10.0-50.0 % Monocytes (%) (Auto) 11.7 0.0-12.0 % Eosinophils (%) (Auto) 2.5 0.0-7.0 % Basophils (%) (Auto) 0.8 0.0-2.0 % Neutrophils # (Auto) 2.1 1.6-8.6 10 ^3/uL Lymphocytes # (Auto) 1.1 0.4-5.4 10 ^3/uL Monocytes # (Auto) 0.4 0-1.3 10 ^3/uL Eosinophils # (Auto) 0.1 0-0.8 10 ^3/uL Basophils # (Auto) 0 0-0.2 10 ^3/uL Nucleated Red Blood Cells 0.2 % Sodium Level 134 L 136-145 mmol/L Potassium Level 4.3 3.5-5.1 mmol/L Chloride Level 92 L 98-107 mmol/L Carbon Dioxide Level 30 20-31 mmol/L Anion Gap 12 5-15 Blood Urea Nitrogen 26 H 9-23 mg/dL Creatinine 4.42 H 0.550-1.02 mg/dL Glomerular Filtration Rate Calc 11 >90 mL/min BUN/Creatinine Ratio 5.9 L 10.0-20.0 Serum Glucose 89 74-106 mg/dL Calcium Level 8.0 L 8.7-10.4 mg/dL Total Bilirubin 0.6 0.2-1.0 mg/dL Aspartate Amino Transferase (AST) 16 13-40 U/L Alanine Aminotransferase (ALT) 11 7-40 U/L Alkaline Phosphatase 235 H 46-116 U/L Total Protein 6.6 5.7-8.2 g/dL Albumin 3.8 3.2-4.8 g/dL Troponin I High Sensitivity 36 *H </=34 ng/L Thyroid Stimulating Hormone (TSH) 0.16 L 0.55-4.78 uIU/mL B-Type Natriuretic Peptide 1285.60 0-100 pg/mL Lipase 29 12-53 U/L Assessment Acute intense left-sided headache/double vision ? Temporal arteritis, less likely Stroke/subarachnoid hemorrhage, less likely Rule out intracranial pathology End-stage kidney failure on hemodialysis Plan/Recommendation Monitoring Supportive treatment ESR CRP MR head Nephrology consultation More recommendation per clinical course Prognosis: Poor This medical document was created using an electronic medical record system with [employer] dictation system. Although this document has been carefully reviewed, there may still be some phonetic and typographical errors. These areas are purely typographical due to imperfections of the software programs, and do not reflect any compromise in the patient's medical care. Plan discussed with: Patient, Son, Other LLOYD CORRIGAN MD Oct 12, 2024 20:34
[2024-10-12 22:40] VITALS: BP 158/60; PULSE 71; RESP 16; TEMP 98.2; O2SAT 98
[2024-10-12] MEDS: LORazepam 2MG/ML-1ML VIAL IV ONE (23:09)
[2024-10-12] MEDS: HYDROcodone-ACET 5/325MG TAB PO PRN (23:24)
[2024-10-12 23:50] VITALS: BP 158/60; PULSE 71; RESP 19; TEMP 98.2; O2SAT 97
[2024-10-13] VITALS (9 sets, daily range): BP systolic 124–157; BP diastolic 53–71; PULSE 64–78; RESP 16–20; TEMP 97.9–98.5; O2SAT 98–100
[2024-10-13 07:16] LABS: Hematocrit 33.9 % (36.0-46.0); Hemoglobin 11.2 g/dL (12.2-16.2); Mean Corpuscular Hemoglobin 32.0 pg (28.0-32.0); Mean Corpuscular Volume 97.2 fL (80.0-100.0); Nucleated Red Blood Cells % 0.2 %
[2024-10-13 07:31] LABS: Anion Gap 13 (5-15); Carbon Dioxide 29 mmol/L (20-31); Potassium 5.0 mmol/L (3.5-5.1)
[2024-10-13 07:32] LABS: Chloride 91 mmol/L (98-107); Sodium 133 mmol/L (136-145)
[2024-10-13 07:34] LABS: Calcium 7.8 mg/dL (8.7-10.4)
[2024-10-13 07:37] LABS: BUN/Creatinine Ratio 5.7 (10.0-20.0); Glucose 80 mg/dL (74-106)
[2024-10-13 07:38] LABS: Blood Urea Nitrogen 33 mg/dL (9-23)
--- NOTE | 2024-10-13 08:53 | DVH ---
PROCEDURE: MRI BRAIN HEAD WO CONTRAST Indication: Diplopia, acute headache COMPARISON: 10/12/2024 TECHNIQUE: Multiplanar multisequence images of the brain are obtained. FINDINGS: There is no abnormal diffusion restriction. Mild periventricular and subcortical white matter T2, FLA IR hyperintense changes There is no intracranial hemorrhage. No extra-axial fluid collection, mass ef fect or midline shift. The ventricles are midline and normal in size. The cisterns are patent. Normal intracranial flow voids are preserved. No abnormal susceptibility signal. Mastoids well pneumatized. Mild mucosal thickening left maxillary sinus. The visualized orbits are u nremarkable. IMPRESSION: No acute cerebrovascular ischemia. Mild chronic microvascular ischemic changes.
[2024-10-13] MEDS ORDERED: CETI10TA2 PO (12:39)
[2024-10-13] MEDS ORDERED: ATOR40TA52 PO (12:42)
[2024-10-13] MEDS ORDERED: LOPE2CAP PO (12:42)
[2024-10-13] MEDS ORDERED: FLUT0.05 NAS (12:42)
[2024-10-13] MEDS ORDERED: CINA30TA2 PO (12:45)
[2024-10-13] MEDS ORDERED: LEVO25TA6 PO (12:45)
[2024-10-13] MEDS ORDERED: LEVO50TA7 PO (12:45)
[2024-10-13] MEDS ORDERED: SUCR5CHW PO (12:45)
[2024-10-13] MEDS ORDERED: VADA150T PO (12:45)
--- NOTE | 2024-10-13 17:09 | DVHPNRES ---
Progress Note Date Seen: Oct 13, 2024 Resident Creating Document: XIOMARA ARTHUR RESIDENT Medical Necessity Reason Pt with a Central, PICC or Fol: No Subjective Review of Systems Patient is a 64-year-old female with past medical history of anemia, diabetes mellitus, hypertension, hypothyroidism, and ESRD on hemodialysis, who came to the ER with the complaint of headache. The patient states she has had headaches on and off for the last 3 weeks. She refers this episode began the day before presentation and refers severe left periorbital headache that radiates to the back of her head and the left shoulder, with intensity 10/10, for which she took tylenol and norco without relief, associated with photophobia, tearing of the eyes, double vision, nausea, and vomiting. On evaluation in the ED, she was found in moderate distress, with photophobia, and hypertensive. Initial labs are significant for WBCs 3.9, creatinine 3.49, BUN 25, and ALP 274. chest x-ray shows pulmonary vascular congestion with right lower lung zone and left mid to lower lung zone atelectasis. Head CT shows no acute intracranial abnormality. Abdominopelvic CT shows no acute abdominopelvic abnormalities. Patient was placed on 15 L of oxygen, which was brought down to 6 L. Additionally due to blood pressure in the 190s, 1 dose of hydralazine was given. The patient was admitted for further workup and monitoring. Patient seen at bedside. She is AOx4, referred some minor nausea which resolved with time, currently denies headache, states she has been able to sleep, is tolerating oral diet, and is ambulating. No adverse events over night. Patient is slightly hypertensive, other vitals are within normal range. Follow-up BC is within range, follow up chemical panel shows mild hyponatremia, elevated creatinine, and BUN. Patient underwent dialysis today. She was evaluated by Neurology, who recommended monitoring, supportive treatment, MRI of the head. This MRI showed no acute CVA, mild chronic microvascular ischemic changes. We will continue to monitor. Objective vital signs Vital Sign Date Time Temp Pulse Resp B/P (MAP) Pulse Ox O2 Delivery O2 Flow Rate FiO2 10/13/24 16:51 98.5 69 20 132/68 (89) 99 98.5 10/13/24 07:55 Nasal Cannula* 3 32 Total Intake and Output 10/12/24 10/12/24 10/13/24 15:00 23:00 07:00 Intake Total 300 ml Output Total 0 ml Balance 300 ml medications Current Medications Medications Dose Ordered Sig/Ashley Route Start Time Stop Time Status Last Admin Dose Admin Aspirin 81 mg DAILY PO 10/12/24 10:00 10/13/24 10:40 81 MG Clopidogrel Bisulfate 75 mg DAILY PO 10/12/24 10:00 10/12/24 10:02 75 MG Sevelamer HCl 800 mg TIDWM PO 10/12/24 08:00 10/13/24 08:31 800 MG Multivit/Ca Carb/ B Cmplx/FA/Prenat 1 tab DAILY PO 10/12/24 10:00 10/13/24 10:39 1 TAB Carvedilol 3.125 mg Q12HR PO 10/11/24 22:00 10/12/24 23:08 3.125 MG Calcium Acetate 667 mg TIDWMEALS PO 10/12/24 08:00 10/13/24 08:31 667 MG Levothyroxine Sodium 150 mcg QAM@0600 PO 10/12/24 06:00 10/13/24 06:09 150 MCG Hydralazine HCl 10 mg Q6HP PRN IV 10/11/24 22:00 10/13/24 06:11 10 MG Diagnostic Test (Pha) 1 strip ACHS 10/11/24 22:00 10/13/24 12:03 1 STRIP Insulin Human Regular ACHS SC 10/11/24 22:00 Dextrose 50 ml UD PRN IV 10/11/24 22:00 Sodium Chloride 10 ml Q8HR IV 10/11/24 22:00 10/13/24 14:29 10 ML Acetaminophen/ Hydrocodone Bitart 1 tab Q4HP PRN PO 10/11/24 22:00 10/12/24 23:24 1 TAB Ondansetron HCl 4 mg Q4HP PRN IV 10/11/24 22:00 10/12/24 21:02 4 MG Docusate Sodium 100 mg BIDPRN PRN PO 10/11/24 22:00 Acetaminophen 650 mg Q6HP PRN PO 10/11/24 22:00 Nitroglycerin 0.4 mg Q5MINP PRN SL 10/11/24 23:30 Morphine Sulfate 2 mg Q30M PRN IV 10/11/24 23:30 Clonidine HCl 0.1 mg BID PO 10/12/24 15:30 10/12/24 23:09 0.1 MG Nifedipine 60 mg DAILY PO 10/13/24 10:00 Examination General: The patient alert and oriented in person place and time. Patient following commands HEENT: Normocephalic, atraumatic, normal reactive pupils, mild photophobia, EOM intact, pink conjunctiva, pink moist mucous membrane Respiratory/pulmonary: Clear lungs bilaterally, vesicular murmurs present in almost all lung weiss, no associated crackles or wheezes. Cardiovascular: Normal RRR, normal S1 and S2 Abdomen: Obese, abdomen nondistended, there is no pain to palpation in any of the abdominal quadrants, no palpable masses. Extremities: presence of AV fistula present on left upper arm with thrill, there is no peripheral edema present at the lower extremities, pulses are palpable. Skin: No rashes or pruritus, there is no sacral edema present at this time. Neurological: Intact cranial nerves with no focal neurologic deficits laboratory and microbiology Laboratory Tests 10/13/24 05:37 Test 10/13/24 05:37 Range/Units Serum Glucose 80 74-106 mg/dL Problem List/Assessment/Plan Problem List/Assessment/Plan Assessment and Plan: Intractable headache, likely cluster headache - MRI head: No acute CVA mild chronic microvascular ischemic changes - [place] 5 mg p.o. Q 4h prn - Acetaminophen 650 mg po q.6h prn Intractable nausea and vomiting - Zofran 4 mg IV q.4 PRN Acute hypoxic respiratory failure -10 L O2 NC, down to 3L Hypertensive urgency - hydralazine 10 mg IV prn ESRD on dialysis - Dialysis today - 800 mg t.i.d. po Microcytic anemia, likely chronic due to above -Monitor H&H Hypothyroidism - levothyroxine 150 mcg Type 2 diabetes mellitus - Accu-Cheks -Insulin sliding scale Obesity, BMI 33.2 kg/m2 Chronic HFpEF, EF 55%, not exacerbated - Echocardiogram: LVEF 55%, moderate LVH, mild tricuspid regurgitation, moderate mitral regurgitation Diet: Renal DVT prophylaxis: Not indicated, NAHUM 0 GI prophylaxis: Not indicated Case discussed with Dr. Vazquez Goals of care discussed with the patient for over 30 minutes. Plan discussed with: Patient Date of Service: Oct 13, 2024 Billing Provider: BLANQUITA VAZQUEZ MD Common Visit Codes: [id number] INP/OBS CARE(HIGH) XIOMARA ARTHUR RESIDENT Oct 13, 2024 17:09 BLANQUITA VAZQUEZ MD Oct 14, 2024 20:51
--- NOTE | 2024-10-13 19:45 | DVHINCON2 ---
Date of service: Oct 13, [address] Vazquez Reason for Consultation ESRD and dialysis management History of Present Illness Leyla Pierre is a 64-year-old F with a Past Medical History pertinent for ESRD on HD, Anemia, Diabetes Mellitus, Hypertension and Hypothyroidism who presented to the hospital with complaint of headache. Patient reports having had headaches intermittently for the past 3 weeks. Also reports associated photophobia, tearing of the eyes, double vision, nausea, and vomiting. While in ED, patient was found hypertensive, in moderate distress with photophobia. Head CT reported no acute intracranial abnormality. Chest x-ray showed pulmonary vascular congestion with right lower lung zone and left mid to lower lung zone atelectasis. CT Abdomen Pelvis reported no acute abdominopelvic abnormalities. Patient currently denies headache. She is slightly hypertensive. Patient was evaluated by Neurology, who recommended monitoring and supportive treatment. MRI Brain reported no acute CVA, mild chronic microvascular ischemic changes. Allergies: Coded Allergies: NO KNOWN ALLERGIES (Unverified , 10/14/22) Home Meds Active Scripts Hydrocodone-Acetaminophen (Hydrocodone Bitartrate/AC 5-325 mg) 1 Tab Tab, 1 TAB PO QID PRN, #30 TAB Prov:PAULETTE KIM MD 08/24/23 Ibuprofen Micronized (Ibuprofen) 800 Mg Tab, 800 MG PO Q8HP PRN, #30 TAB Prov:JADYN NICHOLE 01/13/23 Reported Medications Levothyroxine Sodium (Levothyroxine Sodium) 50 Mcg Tab, 50 MCG PO QAM, MCG 10/13/24 Levothyroxine Sodium (Levothyroxine Sodium) 25 Mcg Tab, 25 MCG PO QAM, MCG 10/13/24 Cinacalcet Hydrochloride (Sensipar) 30 Mg Tab, 30 MG PO, TAB 10/13/24 Vadadustat (Vafseo) 150 Mg Tab, 150 MG PO, TAB 10/13/24 Polynuclear Iron(III)-Oxyhydro (Velphoro) 500 Mg Chw, 500 MG PO, TAB.CHEW 10/13/24 Fluticasone Propionate (Fluticasone Propionate) 0.05 % Cre, 50 MCG MARKIE for 30 Da ys, MCG 10/13/24 Loperamide Hcl (Loperamide Hcl) 2 Mg Cap, 2 MG PO, MG 10/13/24 Atorvastatin Calcium (ATORVASTATIN CALCIUM) 40 Mg Tab, 1 TAB PO DAILY, #30 TAB 5 Refills 10/13/24 Cetirizine Hcl (Kls Aller-Jose Elias) 10 Mg Tab, 10 MG PO DAILY, TAB 10/13/24 Docusate Sodium (Colace) 100 Mg Cap, 100 MG PO, CAP 10/15/22 Biotin (Vitamin H) (BIOTIN) 5 Mg Tab, 5000 MG PO, TAB 10/15/22 Hydrocodone-Acetaminophen (Hydrocodone Bitartrate/AC 5-325 mg) 1 Tab Tab, 1 TAB PO, TAB 10/15/22 Promethazine Hcl (Promethazine Hcl) 25 Mg Tab, 25 MG PO, TAB 10/15/22 Diphenoxylate W/ Atropine (Lomotil) 2.5 Mg Tab, 2.5 MCG PO, TAB 10/15/22 Loratadine (Claritin) 10 Mg Tab, 10 MG PO, TAB 10/15/22 Insulin Detemir (Levemir) Inj, 10 UNITS SC DAILY, INJ 10/15/22 Carvedilol (Carvedilol) 12.5 Mg Tab, 12.5 MG PO BID, TAB 10/15/22 Nitroglycerin (NTROSTAT SUBLINGUAL) 0.4 Mg Sl, 0.4 MG SL PRN, TAB *MAY REPEAT EVERY 5 MINUTES X 3 TOTAL IF NO RELIEF, INITIATE ANALGESIC THERAPY. NOTIFY PHYSICIAN *Do not crush. 10/15/22 Hydroxyzine Hcl (Hydroxyzine Hcl) 25 Mg Tab, 25 MG PO, TAB 10/15/22 Patiromer Sorbitex Calcium (Veltassa) 16.8 Gm Pow, 16.8 GM PO, POW 10/15/22 Losartan Potassium (Losartan Potassium) 50 Mg Tab, 1 TAB PO DAILY, #30 TAB 5 Refills 10/15/22 Levothyroxine Sodium (Levothyroxine Sodium) 150 Mcg Tab, 1 TAB PO DAILY 10/14/22 Clopidogrel Bisulfate (CLOPIDOGREL) 75 Mg Tab, 1 TAB PO DAILY 10/14/22 Aspirin (Aspirin Low Dose) 81 Mg Tab, 1 TAB PO DAILY 10/14/22 Current Medications Current Medications Medications (Trade) Dose Ordered Sig/Ashley Route PRN Reason Start Time Stop Time Status Last Admin Nifedipine (Procardia Xl (Time-Release)) 60 mg DAILY PO 10/13/24 10:00 Family History: Diabetes mellitus G8 MOTHER Review of Systems Constitutional: Yes: Weakness; No: Fever, Chills, Sweats, Malaise, Other Respiratory: Shortness of breath; No: Cough, Dry, SOB with excertion, Wheezing, Hemoptysis, Pleuritic Pain, Sputum, Wheezing, Other Cardiovascular: No: Chest Pain, Palpitations, Orthopnea, Paroxysmal Noc. Dyspnea, Edema, Lt Headedness, Other Neurological: No: Weakness, Numbness, Incoordination, Change in speech, Confusion, Seizures, Other All other systems reviewed and negative unless otherwise noted in HPI. H&P Exam Vital Signs/I&O Vital Sign Date Time Temp Pulse Resp B/P (MAP) Pulse Ox O2 Delivery O2 Flow Rate FiO2 10/13/24 16:51 98.5 69 20 132/68 (89) 99 98.5 10/13/24 07:55 Nasal Cannula* 3 32 Intake and Output 10/12/24 10/13/24 19:00 07:00 Intake Total 300 ml Output Total 0 ml Balance 300 ml Intake Oral 300 ml Output Urine Total 0 ml Physical Exam Vitals and nursing notes reviewed. General: In no acute distress. HEENT: Normocephalic, atraumatic, normal reactive pupils, mild photophobia, EOM intact, pink conjunctiva, pink moist mucous membrane Respiratory/pulmonary: Clear lungs bilaterally, vesicular murmurs present in almost all lung weiss, no associated crackles or wheezes. Cardiovascular: Normal RRR, normal S1 and S2 Abdomen: Obese, abdomen nondistended, there is no pain to palpation in any of the abdominal quadrants, no palpable masses. Extremities: Presence of AV fistula present on left upper arm with thrill, there is no peripheral edema present at the lower extremities, pulses are palpable. Skin: No rashes or pruritus, there is no sacral edema present at this time. Neurological: The patient alert and oriented in person place and time. Intact cranial nerves with no focal neurologic deficits. Labs/Diagnostic Data Labs/Diagnostic Data Laboratory Tests Test 10/13/24 17:46 10/13/24 11:51 10/13/24 06:13 10/13/24 05:37 Range/Units POC Glucose 104 94 89 70-106 mg/dl White Blood Count 4.5 4.4-10.8 10^3/uL Red Blood Count 3.49 L 4.0-5.20 10^6/uL Hemoglobin 11.2 L 12.2-16.2 g/dL Hematocrit 33.9 L 36.0-46.0 % Mean Corpuscular Volume 97.2 80.0-100.0 fL Mean Corpuscular Hemoglobin 32.0 28.0-32.0 pg Mean Corpuscular Hemoglobin Concent 32.9 32.0-36.0 g/dL Red Cell Distribution Width 14.2 11.8-14.3 % Platelet Count 171 140-450 10^3/uL Mean Platelet Volume 8.0 6.9-10.8 fL Neutrophils (%) (Auto) 62.1 37.0-80.0 % Lymphocytes (%) (Auto) 22.7 10.0-50.0 % Monocytes (%) (Auto) 11.8 0.0-12.0 % Eosinophils (%) (Auto) 2.5 0.0-7.0 % Basophils (%) (Auto) 0.9 0.0-2.0 % Neutrophils # (Auto) 2.8 1.6-8.6 10 ^3/uL Lymphocytes # (Auto) 1.0 0.4-5.4 10 ^3/uL Monocytes # (Auto) 0.5 0-1.3 10 ^3/uL Eosinophils # (Auto) 0.1 0-0.8 10 ^3/uL Basophils # (Auto) 0 0-0.2 10 ^3/uL Nucleated Red Blood Cells 0.2 % Sodium Level 133 L 136-145 mmol/L Potassium Level 5.0 3.5-5.1 mmol/L Chloride Level 91 L 98-107 mmol/L Carbon Dioxide Level 29 20-31 mmol/L Anion Gap 13 5-15 Blood Urea Nitrogen 33 H 9-23 mg/dL Creatinine 5.76 #H 0.550-1.02 mg/dL Glomerular Filtration Rate Calc 8 >90 mL/min BUN/Creatinine Ratio 5.7 L 10.0-20.0 Serum Glucose 80 74-106 mg/dL Calcium Level 7.8 L 8.7-10.4 mg/dL Test 10/12/24 23:08 10/12/24 07:00 10/12/24 06:05 10/11/24 23:35 Range/Units POC Glucose 127 H 104 122 H 70-106 mg/dl White Blood Count 3.8 L 4.4-10.8 10^3/uL Red Blood Count 3.44 L 4.0-5.20 10^6/uL Hemoglobin 11.1 L 12.2-16.2 g/dL Hematocrit 32.6 L 36.0-46.0 % Mean Corpuscular Volume 94.9 80.0-100.0 fL Mean Corpuscular Hemoglobin 32.3 H 28.0-32.0 pg Mean Corpuscular Hemoglobin Concent 34.1 32.0-36.0 g/dL Red Cell Distribution Width 14.4 H 11.8-14.3 % Platelet Count 157 140-450 10^3/uL Mean Platelet Volume 8.1 6.9-10.8 fL Neutrophils (%) (Auto) 55.1 37.0-80.0 % Lymphocytes (%) (Auto) 29.9 10.0-50.0 % Monocytes (%) (Auto) 11.7 0.0-12.0 % Eosinophils (%) (Auto) 2.5 0.0-7.0 % Basophils (%) (Auto) 0.8 0.0-2.0 % Neutrophils # (Auto) 2.1 1.6-8.6 10 ^3/uL Lymphocytes # (Auto) 1.1 0.4-5.4 10 ^3/uL Monocytes # (Auto) 0.4 0-1.3 10 ^3/uL Eosinophils # (Auto) 0.1 0-0.8 10 ^3/uL Basophils # (Auto) 0 0-0.2 10 ^3/uL Nucleated Red Blood Cells 0.2 % Erythrocyte Sedimentation Rate 2 0-20 mm/hr Sodium Level 134 L 136-145 mmol/L Potassium Level 4.3 3.5-5.1 mmol/L Chloride Level 92 L 98-107 mmol/L Carbon Dioxide Level 30 20-31 mmol/L Anion Gap 12 5-15 Blood Urea Nitrogen 26 H 9-23 mg/dL Creatinine 4.42 H 0.550-1.02 mg/dL Glomerular Filtration Rate Calc 11 >90 mL/min BUN/Creatinine Ratio 5.9 L 10.0-20.0 Serum Glucose 89 74-106 mg/dL Calcium Level 8.0 L 8.7-10.4 mg/dL Total Bilirubin 0.6 0.2-1.0 mg/dL Aspartate Amino Transferase (AST) 16 13-40 U/L Alanine Aminotransferase (ALT) 11 7-40 U/L Alkaline Phosphatase 235 H 46-116 U/L C-Reactive Protein High Sensitivity 0.14 <1.0 mg/dL Total Protein 6.6 5.7-8.2 g/dL Albumin 3.8 3.2-4.8 g/dL Test 10/11/24 18:48 10/11/24 15:57 10/11/24 14:42 Range/Units Troponin I High Sensitivity 36 *H 33 32 </=34 ng/L Thyroid Stimulating Hormone (TSH) 0.16 L 0.55-4.78 uIU/mL White Blood Count 3.9 L 4.4-10.8 10^3/uL Red Blood Count 3.69 L 4.0-5.20 10^6/uL Hemoglobin 11.7 L 12.2-16.2 g/dL Hematocrit 35.2 L 36.0-46.0 % Mean Corpuscular Volume 95.4 80.0-100.0 fL Mean Corpuscular Hemoglobin 31.7 28.0-32.0 pg Mean Corpuscular Hemoglobin Concent 33.2 32.0-36.0 g/dL Red Cell Distribution Width 13.9 11.8-14.3 % Platelet Count 170 140-450 10^3/uL Mean Platelet Volume 7.7 6.9-10.8 fL Neutrophils (%) (Auto) 59.2 37.0-80.0 % Lymphocytes (%) (Auto) 27.8 10.0-50.0 % Monocytes (%) (Auto) 9.7 0.0-12.0 % Eosinophils (%) (Auto) 2.5 0.0-7.0 % Basophils (%) (Auto) 0.8 0.0-2.0 % Neutrophils # (Auto) 2.3 1.6-8.6 10 ^3/uL Lymphocytes # (Auto) 1.1 0.4-5.4 10 ^3/uL Monocytes # (Auto) 0.4 0-1.3 10 ^3/uL Eosinophils # (Auto) 0.1 0-0.8 10 ^3/uL Basophils # (Auto) 0 0-0.2 10 ^3/uL Nucleated Red Blood Cells 0.1 % Sodium Level 135 L 136-145 mmol/L Potassium Level 3.7 3.5-5.1 mmol/L Chloride Level 92 L 98-107 mmol/L Carbon Dioxide Level 31 20-31 mmol/L Anion Gap 12 5-15 Blood Urea Nitrogen 25 H 9-23 mg/dL Creatinine 3.49 H 0.550-1.02 mg/dL Glomerular Filtration Rate Calc 14 >90 mL/min BUN/Creatinine Ratio 7.2 L 10.0-20.0 Serum Glucose 96 74-106 mg/dL Calcium Level 8.3 L 8.7-10.4 mg/dL Total Bilirubin 0.5 0.2-1.0 mg/dL Aspartate Amino Transferase (AST) 23 13-40 U/L Alanine Aminotransferase (ALT) 12 7-40 U/L Alkaline Phosphatase 274 H 46-116 U/L B-Type Natriuretic Peptide 1285.60 0-100 pg/mL Total Protein 7.8 5.7-8.2 g/dL Albumin 4.6 3.2-4.8 g/dL Lipase 29 12-53 U/L Assessment Intractable headache, likely cluster headache Hypertensive urgency ESRD on hemodialysis Acute hypoxic respiratory failure Intractable nausea and vomiting Type 2 diabetes mellitus Chronic HFpEF, EF 55%, not exacerbated Plan/Recommendation Agreement with your ongoing assessment and plan of care. Received dialysis today. Neurology following. Optimization of BP with IV Hydralazine. Home medications resumed. Daily lab monitoring. Insulin sliding scale. Accu-checks. Additional plan as per the hospital course. Plan discussed with: Patient, Other (RN) RIK WOODS DO Oct 13, 2024 19:45
--- NOTE | 2024-10-13 19:56 | DVHPN2 ---
Progress Note - Dictate Date Seen: Oct 13, 2024 Medical Necessity Reason Pt with a Central, PICC or Fol: No Subjective Ms. Micah Pierre is a 64 years old right-handed female with a history of hypertension, diabetes, dyslipidemia, hypothyroidism, end-stage kidney failure on him lysis, she was brought to the [facility] on 10/11/2024 with a chief complaint of acute headache. I have seen and examined the patient, I have talked to her nurse, our bilingual nursing staff helped me. Family in the room. He is alert and oriented. She reports no differences in her symptoms. She gives more information today When she was going through hemodialysis on 10/11/2024, there was a lot of found blowing when towards her face. During the hemodialysis,she developed stabbing left frontal temporal headache, left eye, which gradually evolved into intense, 10/10 in terms headache over 2 hours, with increased sensitivity to lights, noise, she also had nausea and vomiting, she had double vision when she was looking straight forward altered why side, she has/had general weakness but no focal weakness numbness. She reported swelling in the left eye and she is sensitive to see when. She denies similar headache previously, he denies a history of headache WBC/HB/PLT/MCV, 10/12/2024: 3.8/11.1/157/94.9 ESR, 10/12/2024: TO BUN/CR, 10/12/2024: 26/4.42 HGB A1c, 08/21/23: 8.8 CRP, 10/12/2024: 0.14 Liver function tests, 10/12/2024: Unremarkable TSH, 10/11/2024: 0.16 Echocardiogram, 10/12/2024: lvef 55% moderate LVH mild tricuspid regurg moderate mitral regurg CT head, 10/11/2024: NO ACUTE INTRACRANIAL ABNORMALITY SEEN. CT head, 10/12/2024: No evidence of acute intracranial abnormality MRI head, 10/13/2024: No acute cerebrovascular ischemia. Mild chronic microvascular ischemic changes vital signs Vital Sign Date Time Temp Pulse Resp B/P (MAP) Pulse Ox O2 Delivery O2 Flow Rate FiO2 10/13/24 16:51 98.5 69 20 132/68 (89) 99 98.5 10/13/24 07:55 Nasal Cannula* 3 32 Total Intake and Output 10/12/24 10/12/24 10/13/24 15:00 23:00 07:00 Intake Total 300 ml Output Total 0 ml Balance 300 ml medications Current Medications Medications Dose Ordered Sig/Ashley Route Start Time Stop Time Status Last Admin Dose Admin Aspirin 81 mg DAILY PO 10/12/24 10:00 10/13/24 10:40 81 MG Clopidogrel Bisulfate 75 mg DAILY PO 10/12/24 10:00 10/12/24 10:02 75 MG Sevelamer HCl 800 mg TIDWM PO 10/12/24 08:00 10/13/24 18:20 800 MG Multivit/Ca Carb/ B Cmplx/FA/Prenat 1 tab DAILY PO 10/12/24 10:00 10/13/24 10:39 1 TAB Carvedilol 3.125 mg Q12HR PO 10/11/24 22:00 10/12/24 23:08 3.125 MG Calcium Acetate 667 mg TIDWMEALS PO 10/12/24 08:00 10/13/24 18:20 667 MG Levothyroxine Sodium 150 mcg QAM@0600 PO 10/12/24 06:00 10/13/24 06:09 150 MCG Hydralazine HCl 10 mg Q6HP PRN IV 10/11/24 22:00 10/13/24 06:11 10 MG Diagnostic Test (Pha) 1 strip ACHS 10/11/24 22:00 10/13/24 17:47 1 STRIP Insulin Human Regular ACHS SC 10/11/24 22:00 Dextrose 50 ml UD PRN IV 10/11/24 22:00 Sodium Chloride 10 ml Q8HR IV 10/11/24 22:00 10/13/24 14:29 10 ML Acetaminophen/ Hydrocodone Bitart 1 tab Q4HP PRN PO 10/11/24 22:00 10/13/24 18:36 1 TAB Ondansetron HCl 4 mg Q4HP PRN IV 10/11/24 22:00 10/13/24 18:35 4 MG Docusate Sodium 100 mg BIDPRN PRN PO 10/11/24 22:00 Acetaminophen 650 mg Q6HP PRN PO 10/11/24 22:00 Nitroglycerin 0.4 mg Q5MINP PRN SL 10/11/24 23:30 Morphine Sulfate 2 mg Q30M PRN IV 10/11/24 23:30 Clonidine HCl 0.1 mg BID PO 10/12/24 15:30 10/12/24 23:09 0.1 MG Nifedipine 60 mg DAILY PO 10/13/24 10:00 objective General: the patient is well developed and nourished. No acute distress. HEENT: Normocephalic, neck is supple, no carotid bruits. No mass. Tenderness to palpation between the eyes, in the whole left scalp, but without local swelling, erythema, or permanent vasculatures. Both eyes feels soft to palpation, but the patient is very sensitive to touch to the eyes. This no abnormal vascular dilatation in the eyes MENTAL STATUS: Subjective SPEECH, LANGUAGE, HIGHER CORTICAL FUNCTION: no aphasia or dysathria. CRANIAL NERVES: Pupils are equal, round and reactive. EOMs full and conjugate. No evoked. No nystagmus. But she has double vision when she is looking straight forward, or to the right side. Facial sensation intact in all three divisions bilaterally. Mandibular strength intact. Facial muscles symmetrical and strength intact. Tongue midline. No fasciculations or atrophy. SENSATION: Sensation to touch and pinprick is normal. MOTOR: Normal tone in the upper and lower extremity. Normal muscle bulk. No fasciculations. No abnormal movements or posturing. Muscle strength of the major groups in the extremities is 4/5 without drift. REFLEXES: Deep tendon reflexes are symmetrical. No pathological reflexes. CEREBELLAR/COORDINATION: Finger to nose and heel to p[place] are normal bilaterally. GAIT/STATION: deferred. laboratory and microbiology Laboratory Tests 10/13/24 05:37 Test 10/13/24 05:37 Range/Units Serum Glucose 80 74-106 mg/dL Problem List Acute intense left-sided headache/double vision Temporal arteritis, unlikely with normal ESR and CRP Stroke/subarachnoid hemorrhage, unlikely End-stage kidney failure on hemodialysis Assessment/Plan Monitoring Supportive treatment Telemetry Aspirin 81 mg daily, Plavix 75 mg daily (home medication) Lipitor 40 mg daily (home medication) Nephrology consultation More recommendation per clinical course This medical document was created using an electronic medical record system with [employer] system. Although this document has been carefully reviewed, there may still be some phonetic and typographical errors. These areas are purely typographical due to imperfections of the software programs, and do not reflect any compromise in the patient's medical care. Prognosis poor Plan discussed with: Patient, Other Total Time (mins): 40 LLOYD CORRIGAN MD Oct 13, 2024 19:56
[2024-10-14] VITALS (9 sets, daily range): BP systolic 111–149; BP diastolic 58–77; PULSE 60–74; RESP 16–19; TEMP 97.5–98.5; O2SAT 93–100
[2024-10-14 06:45] LABS: Hematocrit 31.9 % (36.0-46.0); Hemoglobin 10.8 g/dL (12.2-16.2); Mean Corpuscular Hemoglobin 32.5 pg (28.0-32.0); Mean Corpuscular Volume 95.7 fL (80.0-100.0); Nucleated Red Blood Cells % 0.1 %
[2024-10-14 06:55] LABS: Anion Gap 10 (5-15); Carbon Dioxide 31 mmol/L (20-31); Potassium 4.4 mmol/L (3.5-5.1); Sodium 136 mmol/L (136-145)
[2024-10-14 06:56] LABS: Calcium 7.9 mg/dL (8.7-10.4); Chloride 95 mmol/L (98-107)
[2024-10-14 07:01] LABS: BUN/Creatinine Ratio 5.8 (10.0-20.0); Glucose 80 mg/dL (74-106)
[2024-10-14 07:06] LABS: Blood Urea Nitrogen 33 mg/dL (9-23)
[2024-10-14] MEDS: DOCUSATE SOD 100 MG CAP PO PRN (10:03)
[2024-10-14] MEDS: MAGNESIUM CITRATE SOLUTION 300 ML BTL PO ONE ×2 (11:38→19:15)
--- NOTE | 2024-10-14 15:28 | DVHPNRES ---
Progress Note Date Seen: Oct 14, 2024 Resident Creating Document: RAUDEL BREWSTER RESIDENT Medical Necessity Reason Pt with a Central, PICC or Fol: No Subjective Review of Systems Patient is a 64-year-old female with past medical history of anemia, diabetes mellitus, hypertension, hypothyroidism, and ESRD on hemodialysis, who came to the ER with the complaint of headache. The patient states she has had headaches on and off for the last 3 weeks. She refers this episode began the day before presentation and refers severe left periorbital headache that radiates to the back of her head and the left shoulder, with intensity 10/10, for which she took tylenol and norco without relief, associated with photophobia, tearing of the eyes, double vision, nausea, and vomiting. On evaluation in the ED, she was found in moderate distress, with photophobia, and hypertensive. Initial labs are significant for WBCs 3.9, creatinine 3.49, BUN 25, and ALP 274. chest x-ray shows pulmonary vascular congestion with right lower lung zone and left mid to lower lung zone atelectasis. Head CT shows no acute intracranial abnormality. Abdominopelvic CT shows no acute abdominopelvic abnormalities. Patient was placed on 15 L of oxygen, which was brought down to 6 L. Additionally due to blood pressure in the 190s, 1 dose of hydralazine was given. The patient was admitted for further workup and monitoring. 10/13-Patient seen at bedside. She is AOx4, referred some minor nausea which resolved with time, currently denies headache, states she has been able to sleep, is tolerating oral diet, and is ambulating. No adverse events over night. Patient is slightly hypertensive, other vitals are within normal range. Follow-up BC is within range, follow up chemical panel shows mild hyponatremia, elevated creatinine, and BUN. Patient underwent dialysis today. She was evaluated by Neurology, who recommended monitoring, supportive treatment, MRI of the head. This MRI showed no acute CVA, mild chronic microvascular ischemic changes. We will continue to monitor. 10/14-Patient was seen at bedside. He complained of headache and nausea and was given Zofran for the nausea. Her vitals are stable and she is currently on 3 L of oxygen. Follow-up chemical panel shows raised BUN and creatinine. We will continue to monitor her discharge her tomorrow if she is doing well clinically. Uses 3 L of oxygen at home. Past medical history: ESRD on dialysis, diabetes mellitus, hypertension,stroke 5 years ago,CHF,hypothyroidism Past surgical history: Left upper extremity AV fistula Social & Personal history: lives at home with family Smoking: Denies Alcohol: Denies Drugs: Denies Allergies: no known allergies Patient seen and examined at bedside. Patient is alert and oriented to time, place person and responding to all questions. She has mild headache andnausea. Eyes: No Pain, No Vision change, No Conjunctivae inflammation, No Eyelid inflammation No Redness ENT: No Ear pain, No Ear discharge, No Nose pain, No Nose discharge, No Nose congestion, No Mouth pain, No Mouth swelling, No Throat pain, No Throat swelling Cardiovascular: No Chest Pain, No Palpitations, no Orthopnea, No Paroxysmal No Dyspnea, No Edema, No Lt Headedness Respiratory: No Cough, No Dry,no Shortness of breath, No SOB with exertion, No Wheezing, No Hemoptysis, No Pleuritic Pain, No Sputum Gastrointestinal: No Nausea, No Vomiting, No Abdominal Pain, No Diarrhea, No Constipation, No Melena, No Hematochezia Genitourinary: No Dysuria, No Frequency, No Incontinence, No Hematuria, No Retention Objective vital signs Vital Sign Date Time Temp Pulse Resp B/P (MAP) Pulse Ox O2 Delivery O2 Flow Rate FiO2 10/14/24 13:00 97.5 70 18 131/67 (88) 98 97.5 10/14/24 08:05 Nasal Cannula* 3 32 Total Intake and Output 10/13/24 10/13/24 10/14/24 15:00 23:00 07:00 Intake Total 690 ml 350 ml Balance 690 ml 350 ml medications Current Medications Medications Dose Ordered Sig/Ashley Route Start Time Stop Time Status Last Admin Dose Admin Aspirin 81 mg DAILY PO 10/12/24 10:00 10/13/24 10:40 81 MG Clopidogrel Bisulfate 75 mg DAILY PO 10/12/24 10:00 10/12/24 10:02 75 MG Sevelamer HCl 800 mg TIDWM PO 10/12/24 08:00 10/14/24 08:05 800 MG Multivit/Ca Carb/ B Cmplx/FA/Prenat 1 tab DAILY PO 10/12/24 10:00 10/13/24 10:39 1 TAB Carvedilol 3.125 mg Q12HR PO 10/11/24 22:00 10/13/24 23:10 3.125 MG Calcium Acetate 667 mg TIDWMEALS PO 10/12/24 08:00 10/14/24 08:05 667 MG Levothyroxine Sodium 150 mcg QAM@0600 PO 10/12/24 06:00 10/14/24 05:25 150 MCG Hydralazine HCl 10 mg Q6HP PRN IV 10/11/24 22:00 10/13/24 06:11 10 MG Diagnostic Test (Pha) 1 strip ACHS 10/11/24 22:00 10/14/24 12:03 1 STRIP Insulin Human Regular ACHS SC 10/11/24 22:00 10/14/24 12:07 3 UNITS Dextrose 50 ml UD PRN IV 10/11/24 22:00 Sodium Chloride 10 ml Q8HR IV 10/11/24 22:00 10/14/24 05:25 10 ML Acetaminophen/ Hydrocodone Bitart 1 tab Q4HP PRN PO 10/11/24 22:00 10/13/24 18:36 1 TAB Ondansetron HCl 4 mg Q4HP PRN IV 10/11/24 22:00 10/13/24 18:35 4 MG Docusate Sodium 100 mg BIDPRN PRN PO 10/11/24 22:00 10/14/24 10:03 100 MG Acetaminophen 650 mg Q6HP PRN PO 10/11/24 22:00 Nitroglycerin 0.4 mg Q5MINP PRN SL 10/11/24 23:30 Morphine Sulfate 2 mg Q30M PRN IV 10/11/24 23:30 Clonidine HCl 0.1 mg BID PO 10/12/24 15:30 10/13/24 23:10 0.1 MG Nifedipine 60 mg DAILY PO 10/13/24 10:00 Examination General: The patient alert and oriented in person place and time. Patient following commands HEENT: Normocephalic, atraumatic, normal reactive pupils, mild photophobia, EOM intact, pink conjunctiva, pink moist mucous membrane Respiratory/pulmonary: Clear lungs bilaterally, vesicular murmurs present in almost all lung weiss, no associated crackles or wheezes. Cardiovascular: Normal RRR, normal S1 and S2 Abdomen: Obese, abdomen nondistended, there is no pain to palpation in any of the abdominal quadrants, no palpable masses. Extremities: presence of AV fistula present on left upper arm with thrill, there is no peripheral edema present at the lower extremities, pulses are palpable. Skin: No rashes or pruritus, there is no sacral edema present at this time. Neurological: Intact cranial nerves with no focal neurologic deficits laboratory and microbiology Laboratory Tests 10/14/24 05:16 Test 10/14/24 05:16 Range/Units Serum Glucose 80 74-106 mg/dL Labs and/or images reviewed: Labs reviewed by me, Image(s) reviewed by me Problem List/Assessment/Plan Problem List/Assessment/Plan intractable headache, likely cluster headache - MRI head: No acute CVA mild chronic microvascular ischemic changes - Wright 5 mg p.o. Q 4h prn - Acetaminophen 650 mg po q.6h prn Intractable nausea and vomiting - Zofran 4 mg IV q.4 PRN Hypertensive urgency hydralazine 10mg prn Fluid overload Chronic HFpEF, EF 55%, not exacerbated - Echocardiogram: LVEF 55%, moderate LVH, mild tricuspid regurgitation, moderate mitral regurgitation End-stage renal disease on hemodialysis Microcytic anemia, likely chronic due to above -Monitor H&H Acute hypoxic respiratory failure on 3L oxygen by nasal canula Hypothyroidism, controlled - levothyroxine 150 mcg Diabetes mellitus type 2,controlled - Accu-Cheks -Insulin sliding scale Obesity, BMI 33.2 kg/m2 Diet:renal PUD prophylaxis: Not indicated DVT prophylaxis: Not indicated, NAHUM 0 Goals of care: Full code, discussed for >16 minutes on 10/14/2024 Plan discussed with patient Plan discussed with Dr Vazquez Plan discussed with: Patient Dietary Evaluation Review Comments: 1) Add 60g CCHO cardiac restriction to renal diet 2) Encourage optimal PO intake 3) Refer to outpatient RD/[facility] for weight management 4) Follow-up with cardiology and nephrology 5) Continue to monitor I&O, labs, and skin integrity Expected Outcomes/Goals: 1) appetite and labs to improve 2) f/u in 3-5 days Date of Service: Oct 14, 2024 Billing Provider: BLANQUITA VAZQUEZ MD Common Visit Codes: [id number] INP/OBS CARE(HIGH) RAUDEL BREWSTER RESIDENT Oct 14, 2024 15:28 BLANQUITA VAZQUEZ MD Oct 14, 2024 20:52
--- NOTE | 2024-10-14 20:25 | DVHPN2 ---
Progress Note - Dictate Date Seen: Oct 14, 2024 Medical Necessity Reason Pt with a Central, PICC or Fol: No Subjective Patient was seen and evaluated in follow up. No acute events overnight. Patient complains of headache associated with nausea. Stable on 3L NC. Uses 3L of oxygen at baseline. Also complains of constipation. vital signs Vital Sign Date Time Temp Pulse Resp B/P (MAP) Pulse Ox O2 Delivery O2 Flow Rate FiO2 10/14/24 17:00 97.5 60 18 139/67 (91) 100 97.5 10/14/24 08:05 Nasal Cannula* 3 32 Total Intake and Output 10/13/24 10/13/24 10/14/24 15:00 23:00 07:00 Intake Total 690 ml 350 ml Balance 690 ml 350 ml medications Current Medications Medications Dose Ordered Sig/Ashley Route Start Time Stop Time Status Last Admin Dose Admin Aspirin 81 mg DAILY PO 10/12/24 10:00 10/13/24 10:40 81 MG Clopidogrel Bisulfate 75 mg DAILY PO 10/12/24 10:00 10/12/24 10:02 75 MG Sevelamer HCl 800 mg TIDWM PO 10/12/24 08:00 10/14/24 18:19 800 MG Multivit/Ca Carb/ B Cmplx/FA/Prenat 1 tab DAILY PO 10/12/24 10:00 10/13/24 10:39 1 TAB Carvedilol 3.125 mg Q12HR PO 10/11/24 22:00 10/13/24 23:10 3.125 MG Calcium Acetate 667 mg TIDWMEALS PO 10/12/24 08:00 10/14/24 18:19 667 MG Levothyroxine Sodium 150 mcg QAM@0600 PO 10/12/24 06:00 10/14/24 05:25 150 MCG Hydralazine HCl 10 mg Q6HP PRN IV 10/11/24 22:00 10/13/24 06:11 10 MG Diagnostic Test (Pha) 1 strip ACHS 10/11/24 22:00 10/14/24 18:21 1 STRIP Insulin Human Regular ACHS SC 10/11/24 22:00 10/14/24 18:21 3 UNITS Dextrose 50 ml UD PRN IV 10/11/24 22:00 Sodium Chloride 10 ml Q8HR IV 10/11/24 22:00 10/14/24 14:00 10 ML Acetaminophen/ Hydrocodone Bitart 1 tab Q4HP PRN PO 10/11/24 22:00 10/13/24 18:36 1 TAB Ondansetron HCl 4 mg Q4HP PRN IV 10/11/24 22:00 10/13/24 18:35 4 MG Docusate Sodium 100 mg BIDPRN PRN PO 10/11/24 22:00 10/14/24 10:03 100 MG Acetaminophen 650 mg Q6HP PRN PO 10/11/24 22:00 Nitroglycerin 0.4 mg Q5MINP PRN SL 10/11/24 23:30 Morphine Sulfate 2 mg Q30M PRN IV 10/11/24 23:30 Clonidine HCl 0.1 mg BID PO 10/12/24 15:30 10/13/24 23:10 0.1 MG Nifedipine 60 mg DAILY PO 10/13/24 10:00 objective Vitals and nursing notes reviewed. General: In no acute distress. HEENT: Normocephalic, atraumatic, normal reactive pupils, mild photophobia, EOM intact, pink conjunctiva, pink moist mucous membrane Respiratory/pulmonary: Clear lungs bilaterally, vesicular murmurs present in almost all lung weiss, no associated crackles or wheezes. Cardiovascular: Normal RRR, normal S1 and S2 Abdomen: Obese, abdomen nondistended, there is no pain to palpation in any of the abdominal quadrants, no palpable masses. Extremities: Presence of AV fistula present on left upper arm with thrill, there is no peripheral edema present at the lower extremities. Skin: No rashes or pruritus, there is no sacral edema present at this time. Neurological: The patient alert and oriented in person place and time. Intact cranial nerves with no focal neurologic deficits. laboratory and microbiology Laboratory Tests 10/14/24 05:16 Test 10/14/24 05:16 Range/Units Serum Glucose 80 74-106 mg/dL Problem List Intractable headache, likely cluster headache Hypertensive urgency ESRD on hemodialysis Acute hypoxic respiratory failure Intractable nausea and vomiting Type 2 diabetes mellitus Chronic HFpEF, EF 55%, not exacerbated Assessment/Plan Agree with current supportive medical care. Neurology consulted. Dialyzed yesterday. No HD today. Home medications resumed. Insulin sliding scale. Accu-checks. Antiemetics with Zofran. Bowel care regimen. Additional plan as per the hospital course. Dietary Evaluation Review Comments: 1) Add 60g CCHO cardiac restriction to renal diet 2) Encourage optimal PO intake 3) Refer to outpatient RD/[facility] for weight management 4) Follow-up with cardiology and nephrology 5) Continue to monitor I&O, labs, and skin integrity Expected Outcomes/Goals: 1) appetite and labs to improve 2) f/u in 3-5 days Plan discussed with: Patient, Other (RN) RIK WOODS DO Oct 14, 2024 20:25
[2024-10-15 01:00] VITALS: BP 158/81; PULSE 65; RESP 13; TEMP 98; O2SAT 100
[2024-10-15 05:00] VITALS: BP 143/70; PULSE 62; RESP 14; TEMP 97.6; O2SAT 95
[2024-10-15 08:00] VITALS: PULSE 65
[2024-10-15 08:02] LABS: Hematocrit 33.0 % (36.0-46.0); Hemoglobin 11.1 g/dL (12.2-16.2); Mean Corpuscular Hemoglobin 32.1 pg (28.0-32.0); Mean Corpuscular Volume 95.4 fL (80.0-100.0); Nucleated Red Blood Cells % 0.2 %
[2024-10-15 08:15] LABS: Anion Gap 11 (5-15); Carbon Dioxide 31 mmol/L (20-31); Potassium 4.7 mmol/L (3.5-5.1); Sodium 137 mmol/L (136-145)
[2024-10-15 08:17] LABS: Calcium 8.0 mg/dL (8.7-10.4); Chloride 95 mmol/L (98-107)
[2024-10-15 08:21] LABS: Glucose 98 mg/dL (74-106)
[2024-10-15 08:22] LABS: BUN/Creatinine Ratio 6.9 (10.0-20.0)
[2024-10-15 08:26] LABS: Blood Urea Nitrogen 49 mg/dL (9-23)
[2024-10-15 09:00] VITALS: BP 150/52; PULSE 60; RESP 16; TEMP 97.5; O2SAT 100
[2024-10-15] MEDS: CARVEDILOL 3.125 MG TAB PO ONE (11:15)
[2024-10-15 11:18] LABS: Hepatitis B Surface Antigen Negative (Negative); Hepatitis C Antibody Negative (Negative)
[2024-10-15 12:43] VITALS: PULSE 66
[2024-10-15 13:00] VITALS: BP 138/54; PULSE 66; RESP 18; TEMP 97.1; O2SAT 96
--- NOTE | 2024-10-15 15:13 | DVHDSRES ---
Discharge Summary Date of Admission Resident Creating Document: RAUDEL BREWSTER RESIDENT Oct 11, 2024 at 23:25 Date of Discharge: Oct 15, 2024 Admitting Diagnosis Vascular headache Labs/Diagnostic Data: Laboratory Results Test 10/15/24 07:14 10/15/24 05:57 10/13/24 05:37 10/12/24 06:05 White Blood Count 3.6 10^3/uL (4.4-10.8) Red Blood Count 3.46 10^6/uL (4.0-5.20) Hemoglobin 11.1 g/dL (12.2-16.2) Hematocrit 33.0 % (36.0-46.0) Mean Corpuscular Volume 95.4 fL (80.0-100.0) Mean Corpuscular Hemoglobin 32.1 pg (28.0-32.0) Mean Corpuscular Hemoglobin Concent 33.6 g/dL (32.0-36.0) Red Cell Distribution Width 14.3 % (11.8-14.3) Platelet Count 166 10^3/uL (140-450) Mean Platelet Volume 8.0 fL (6.9-10.8) Neutrophils (%) (Auto) 50.4 % (37.0-80.0) Lymphocytes (%) (Auto) 29.7 % (10.0-50.0) Monocytes (%) (Auto) 14.3 % (0.0-12.0) Eosinophils (%) (Auto) 4.6 % (0.0-7.0) Basophils (%) (Auto) 1.0 % (0.0-2.0) Neutrophils # (Auto) 1.8 10 ^3/uL (1.6-8.6) Lymphocytes # (Auto) 1.1 10 ^3/uL (0.4-5.4) Monocytes # (Auto) 0.5 10 ^3/uL (0-1.3) Eosinophils # (Auto) 0.2 10 ^3/uL (0-0.8) Basophils # (Auto) 0 10 ^3/uL (0-0.2) Nucleated Red Blood Cells 0.2 % Sodium Level 137 mmol/L (136-145) Potassium Level 4.7 mmol/L (3.5-5.1) Chloride Level 95 mmol/L (98-107) Carbon Dioxide Level 31 mmol/L (20-31) Anion Gap 11 (5-15) Blood Urea Nitrogen 49 mg/dL (9-23) Creatinine 7.11 mg/dL (0.550-1.02) Glomerular Filtration Rate Calc 6 mL/min (>90) BUN/Creatinine Ratio 6.9 (10.0-20.0) Serum Glucose 98 mg/dL (74-106) Calcium Level 8.0 mg/dL (8.7-10.4) POC Glucose 103 mg/dl (70-106) Hepatitis B Surface Antigen Negative (Negative) Hepatitis C Antibody Negative (Negative) Erythrocyte Sedimentation Rate 2 mm/hr (0-20) Total Bilirubin 0.6 mg/dL (0.2-1.0) Aspartate Amino Transferase (AST) 16 U/L (13-40) Alanine Aminotransferase (ALT) 11 U/L (7-40) Alkaline Phosphatase 235 U/L (46-116) C-Reactive Protein High Sensitivity 0.14 mg/dL (<1.0) Total Protein 6.6 g/dL (5.7-8.2) Albumin 3.8 g/dL (3.2-4.8) Test 10/11/24 18:48 10/11/24 14:42 Troponin I High Sensitivity 36 ng/L (</=34) Thyroid Stimulating Hormone (TSH) 0.16 uIU/mL (0.55-4.78) B-Type Natriuretic Peptide 1285.60 pg/mL (0-100) Lipase 29 U/L (12-53) Other Laboratory Tests 10/15/24 07:14 Brief Hx & Hospital Course: Patient is a 64-year-old female with past medical history of anemia, diabetes mellitus, hypertension, hypothyroidism, and ESRD on hemodialysis, who came to the ER with the complaint of headache. The patient stated she has had headaches on and off for the last 3 weeks. She referred this episode began the day before presentation and she had severe left periorbital headache that radiated to the back of her head and the left shoulder, with intensity 10/10, for which she took tylenol and norco without relief, associated with photophobia, tearing of the eyes, double vision, nausea, and vomiting. On evaluation in the ED, she was found in moderate distress, with photophobia, and was hypertensive. Initial labs were significant for WBCs 3.9, creatinine 3.49, BUN 25, and ALP 274. Chest x-ray showed pulmonary vascular congestion with right lower lung zone and left mid to lower lung zone atelectasis. Head CT showed no acute intracranial abnormality. Abdominopelvic CT showed no acute abdominopelvic abnormalities. Patient was placed on 15 L of oxygen, which was brought down to 6 L. Over the course of her hospital stay, her headache, nausea and vomiting improved and she underwent 1 session of dialysis here. She was evaluated by Neurology, who recommended monitoring, supportive treatment, MRI of the head. This MRI showed no acute CVA, mild chronic microvascular ischemic changes. On evaluation today, she stated she is well and her pain is managed. Vitals have remained stable for discharge home. All medications and recommendations were thoroughly explained and the patient stated understanding of the same. G-tube discussion was held with the patient at bedside were all questions were answered and concerns were addressed. Uses 3 L of oxygen at home. Past medical history: ESRD on dialysis, diabetes mellitus, hypertension,stroke 5 years ago,CHF,hypothyroidism Past surgical history: Left upper extremity AV fistula Social & Personal history: lives at home with family Smoking: Denies Alcohol: Denies Drugs: Denies Allergies: no known allergies She has mild headache andnausea. Eyes: No Pain, No Vision change, No Conjunctivae inflammation, No Eyelid inflammation No Redness ENT: No Ear pain, No Ear discharge, No Nose pain, No Nose discharge, No Nose congestion, No Mouth pain, No Mouth swelling, No Throat pain, No Throat swelling Cardiovascular: No Chest Pain, No Palpitations, no Orthopnea, No Paroxysmal No Dyspnea, No Edema, No Lt Headedness Respiratory: No Cough, No Dry,no Shortness of breath, No SOB with exertion, No Wheezing, No Hemoptysis, No Pleuritic Pain, No Sputum Gastrointestinal: No Nausea, No Vomiting, No Abdominal Pain, No Diarrhea, No Constipation, No Melena, No Hematochezia Genitourinary: No Dysuria, No Frequency, No Incontinence, No Hematuria, No Retention General: The patient alert and oriented in person place and time. Patient following commands HEENT: Normocephalic, atraumatic, normal reactive pupils, mild photophobia, EOM intact, pink conjunctiva, pink moist mucous membrane Respiratory/pulmonary: Clear lungs bilaterally, vesicular murmurs present in almost all lung weiss, no associated crackles or wheezes. Cardiovascular: Normal RRR, normal S1 and S2 Abdomen: Obese, abdomen nondistended, there is no pain to palpation in any of the abdominal quadrants, no palpable masses. Extremities: presence of AV fistula present on left upper arm with thrill, there is no peripheral edema present at the lower extremities, pulses are palpable. Skin: No rashes or pruritus, there is no sacral edema present at this time. Neurological: Intact cranial nerves with no focal neurologic deficits intractable headache, likely cluster headache Intractable nausea and vomiting Hypertensive urgency Fluid overload Chronic HFpEF, EF 55%, not exacerbated End-stage renal disease on hemodialysis Microcytic anemia, likely chronic due to above Acute hypoxic respiratory failure Hypothyroidism, controlled Diabetes mellitus type 2,controlled Obesity, BMI 33.2 kg/m2 Operations or Procedures 1.PROCEDURE(s): CXRP - CHEST PORTABLE REASON: upper abd pain n/v ORDER NUMBER(s): [id number], ACCESSION NUMBER(s): [id number] CHEST RADIOGRAPH Indication: upper abd pain n/v Technique: Single frontal view of the chest was obtained Comparison: XY CHEST XRAY 1 VIEW on DOS: 10/18/22, XY CHEST PORTABLE on DOS: 10/14/22 FINDINGS: Lines and Tubes: None Lungs: No focal consolidation. Mild diffuse interstitial prominence. Right lower lung zone and left mid to lower lung zone Linear densities. Pleura: No effusion. No pneumothorax. Cardiomediastinal contours: [id number] cardiomegaly. Bones: No acute osseous abnormality. Left upper arm, axillary and subclavian vascular stent is noted. Surgical clips are noted within the left axilla. IMPRESSION: Pulmonary vascular congestion with right lower lung zone and left mid to lower lung zone atelectasis. 2.PROCEDURE(s): HWOCT - HEAD WITHOUT CONTRAST REASON: L sided headache, n/v ORDER NUMBER(s): [id number], ACCESSION NUMBER(s): [id number] CLINICAL HISTORY: L sided headache, n/v TECHNIQUE: Helical scanning was performed of the head from the skull base to the vertex. Multiplanar reconstructions were performed. This exam was performed according to our departmental dose optimization program. Up-to-date CT equipment and radiation dose reduction techniques are utilized as appropriate. CTDI 60.8 DLP 02/21/95 .8 COMPARISON: None FINDINGS: There is no evidence for acute intracranial hemorrhage, acute ischemic changes, mass, mass effect, or extra-axial fluid collection. There is no hydrocephalus or midline shift. There is no effacement of the cerebral sulci and basal subarachnoid cisterns. The kowalski-white matter differentiation is well maintained. The imaged paranasal sinuses are clear. There has been bilateral cataract extraction. The mary is empty. IMPRESSION: NO ACUTE INTRACRANIAL ABNORMALITY SEEN. 3.PROCEDURE(s): ABPL - CT AB PEL WO CON-NO ORAL OR IV REASON: Upper abdominal pain, nausea and vomiting ORDER NUMBER(s): [id number], ACCESSION NUMBER(s): [id number] Exam: CT CT AB PEL WO CON-NO ORAL OR IV History: Upper abdominal pain, nausea and vomiting Comparison Study: None TECHNIQUE: Multidetector CT of the abdomen and pelvis was performed from lung bases to pubic symphysis. Imaging was performed without IV contrast. Axial, coronal, and sagittal multiplanar reformats were obtained from the axial data set by the technologist. RADIATION DOSE: DLP 2559.71 mGy.cm; CTDI vol 60.82 mGy. Findings: Lungs: Trace bilateral pleural effusions. The lungs are otherwise clear. Heart: Mild cardiomegaly. Severe coronary atherosclerosis. Liver: Mild biliary ductal dilatation. Gallbladder: Cholecystectomy. Spleen: Unremarkable Pancreas: Unremarkable Adrenals: Unremarkable Kidneys: Bilateral renal atrophy. Right renal cysts. GI tract: Unremarkable : Myomatous uterus Vasculature: Moderate to severe aortoiliac atherosclerosis. Lymphadenopathy: Absent Peritoneum: Mild pelvic ascites. Musculoskeletal: Mild multilevel degenerative changes of the thoracolumbar spine. Severe compression fracture of T8, no retropulsion. Soft tissues: Unremarkable Impression: 1. No acute abdominopelvic abnormalities. 2. Mild pelvic ascites, nonspecific. 3. Trace bilateral pleural effusions. 4.PROCEDURE(s): CXR1 - CHEST XRAY 1 VIEW REASON: aspiration? ORDER NUMBER(s): [id number], ACCESSION NUMBER(s): [id number] CHEST RADIOGRAPH Indication: aspiration Technique: Single frontal view of the chest was obtained Comparison: XY CHEST PORTABLE on DOS: 10/11/24, XY CHEST XRAY 1 VIEW on DOS: 10/18/22, XY CHEST PORTABLE on DOS: 10/14/22 FINDINGS: Lines and Tubes: None Lungs: No focal consolidation. Pleura: No effusion. No pneumothorax. Cardiomediastinal contours: Cardiomegaly. Bones: No acute osseous abnormality. IMPRESSION: Cardiomegaly with CHF. 5.PROCEDURE(s): HWOCT - HEAD WITHOUT CONTRAST REASON: ALTER MENTAL STATUS ORDER NUMBER(s): [id number], ACCESSION NUMBER(s): [id number] Procedure: CT HEAD WITHOUT CONTRAST Study Date and Requested Time: 10/12/2024 01:08 PM History: ALTER MENTAL STATUS Comparison: CT HEAD WITHOUT CONTRAST on DOS: 10/11/24, CT MAXILLOFACIAL WITHOUT on DOS: 01/13/23 Dose: CTDI: 49.32 mGy DLP: 863.9 mGycm Technique: Multiplanar images obtained through the brain without intravenous contrast. Findings: Normal brain volume and formation. Mild chronic small vessel ischemic changes. No hemorrhages, masses, mass effect, midline shift, herniation or cytotoxic edema following a large vascular territory. No intra-axial or extra-axial fluid collections. No evidence of hydrocephalus. The basal cisterns are patent. Unchanged Nonspecific Focus of calcification of the left basal ganglia. Nonspecific Empty sella. The cerebellar tonsils are in normal position. The cerebellum is unremarkable. Bilateral lens replacement. Otherwise, orbits and globes are unremarkable. The paranasal sinuses and mastoids are clear. There are no worrisome calvarial lesions. Impression: No evidence of acute intracranial abnormality. 6.PROCEDURE(s): MBHL - BRAIN HEAD WO CONTRAST REASON: Diplopia, acute headache ORDER NUMBER(s): [id number], ACCESSION NUMBER(s): [id number] PROCEDURE: MRI BRAIN HEAD WO CONTRAST Indication: Diplopia, acute headache COMPARISON: 10/12/2024 TECHNIQUE: Multiplanar multisequence images of the brain are obtained. FINDINGS: There is no abnormal diffusion restriction. Mild periventricular and subcortical white matter T2, FLAIR hyperintense changes There is no intracranial hemorrhage. No extra-axial fluid collection, mass effect or midline shift. The ventricles are midline and normal in size. The cisterns are patent. Normal intracranial flow voids are preserved. No abnormal susceptibility signal. Mastoids well pneumatized. Mild mucosal thickening left maxillary sinus. The visualized orbits are unremarkable. IMPRESSION: No acute cerebrovascular ischemia. Mild chronic microvascular ischemic changes. 7.PROCEDURE(s): ECIDC - ECHO 2D MODE CARDIAC DOP REASON: CHF exacerbation, unspecified ORDER NUMBER(s): [id number], ACCESSION NUMBER(s): [id number] APPROVED REPORT EXAM: Two-dimensional and M-mode echocardiogram with Doppler and color Doppler. Blood Pressure: 156/48 mmHg INDICATION CHF exacerbation, unspecified RISK FACTORS Height: 64, Weight: 179 DIMENSIONS LVDd 4.8 (3.8-5.7cm) LA (2D) 4.8 (1.9-4.0cm) Aortic Root 3.1 (2.0- 3.7cm) LVDs 3.3 (2.5-4.0cm) LA (MM) (1.9-4.0cm) Aortic Cusp Exc 1.4 (1.5- 2.0cm) EF (%) 60.0 (55-70%) Rt. Atrium 4.5 (1.9-4.0cm) Asc. Aorta cm Mitral Valve Mitral Mitral Stenosis E wave 1.39m/s MV Mean GR. 3mmHg A wave 0.75m/s MV Peak GR. 129mmHg E/A ratio 1.9 2D MVA cm2 DECEL Time 205ms PRESS 1/2 Time 73ms IVRT ms Dop MVA 3.00cm2 Aortic Valve Aortic Valve Aortic Stenosis V1 0.93m/s AO Mean GR. 9mmHg V2 2.09m/s AO Peak GR. 17mmHg LVOT Diameter 2.1 (1.8-2.4cm) Doppler CORNELIO 1.54cm2 Pulmonic Valve V2 1.19m/s Tricuspid Valve TR Velocity 3.16m/s RVSP 51mmHg Conclusion lvef 55% moderate LVH mild tricuspid regurg moderate mitral regurg Condition at Discharge: Stable Final Diagnosis/Problems List intractable headache, likely cluster headache Intractable nausea and vomiting,due to the above Hypertensive urgency Fluid overload Chronic HFpEF, EF 55%, not exacerbated End-stage renal disease on hemodialysis Microcytic anemia, likely chronic due to above Acute hypoxic respiratory failure Hypothyroidism, controlled Diabetes mellitus type 2,controlled Obesity, BMI 33.2 kg/m2 Discharge Disposition: Home Discharge Instruct/Medications Diet: Consistent carbohydrate, Cardiac 2g Na,low cholest, Renal Activity: No Restrictions, As Tolerated Follow Up/Referral: follow up with pcp Scheduled Aspirin (Aspirin Low Dose), 1 TAB PO DAILY, (Reported) Atorvastatin Calcium (Atorvastatin Calcium), 1 TAB PO DAILY, (Reported) Carvedilol (Carvedilol), 12.5 MG PO BID, (Reported) Cetirizine Hcl (Kls Aller-Jose Elias), 10 MG PO DAILY, (Reported) Clopidogrel Bisulfate (Clopidogrel), 1 TAB PO DAILY, (Reported) Insulin Detemir (Levemir), 10 UNITS SC DAILY, (Reported) Levothyroxine Sodium (Levothyroxine Sodium), 1 TAB PO DAILY, (Reported) Levothyroxine Sodium (Levothyroxine Sodium), 25 MCG PO QAM, (Reported) Levothyroxine Sodium (Levothyroxine Sodium), 50 MCG PO QAM, (Reported) Losartan Potassium (Losartan Potassium), 1 TAB PO DAILY, (Reported) Nitroglycerin (Ntrostat Sublingual), 0.4 MG SL PRN, (Reported) Scheduled PRN Hydrocodone-Acetaminophen (Hydrocodone Bitartrate/AC 5-325 mg), 1 TAB PO QID PRN Ibuprofen Micronized (Ibuprofen), 800 MG PO Q8HP PRN Miscellaneous Medications Biotin (Vitamin H) (Biotin), 5,000 MG PO, (Reported) Cinacalcet Hydrochloride (Sensipar), 30 MG PO, (Reported) Diphenoxylate W/ Atropine (Lomotil), 2.5 MCG PO, (Reported) Docusate Sodium (Colace), 100 MG PO, (Reported) Fluticasone Propionate (Fluticasone Propionate), 50 MCG MARKIE, (Reported) Hydrocodone-Acetaminophen (Hydrocodone Bitartrate/AC 5-325 mg), 1 TAB PO, (Reported) Hydroxyzine Hcl (Hydroxyzine Hcl), 25 MG PO, (Reported) Loperamide Hcl (Loperamide Hcl), 2 MG PO, (Reported) Loratadine (Claritin), 10 MG PO, (Reported) Patiromer Sorbitex Calcium (Veltassa), 16.8 GM PO, (Reported) Polynuclear Iron(III)-Oxyhydro (Velphoro), 500 MG PO, (Reported) Promethazine Hcl (Promethazine Hcl), 25 MG PO, (Reported) Vadadustat (Vafseo), 150 MG PO, (Reported) Discharge Statement: "Patient was advised to return to the ER or call 911 if any headaches, dizziness, shortness of breath, chest pain, abdominal pain, bleeding, fevers, or worsening of medical condition. Patient was counseled about treatment plan, medications, possible side effects, patientverbalized understanding. All questions were answered to the best of my ability. This discharge took greater then 30 minutes in planning, reviewing documentation, counseling the patient, and discussing with other team members." ASSESSMENT ASSESSMENT Hospital Course Patient is a 64-year-old female with past medical history of anemia, diabetes mellitus, hypertension, hypothyroidism, and ESRD on hemodialysis, who came to the ER with the complaint of headache. The patient stated she has had headaches on and off for the last 3 weeks. She referred this episode began the day before presentation and she had severe left periorbital headache that radiated to the back of her head and the left shoulder, with intensity 10/10, for which she took tylenol and norco without relief, associated with photophobia, tearing of the eyes, double vision, nausea, and vomiting. On evaluation in the ED, she was found in moderate distress, with photophobia, and was hypertensive. Initial labs were significant for WBCs 3.9, creatinine 3.49, BUN 25, and ALP 274. Chest x-ray showed pulmonary vascular congestion with right lower lung zone and left mid to lower lung zone atelectasis. Head CT showed no acute intracranial abnormality. Abdominopelvic CT showed no acute abdominopelvic abnormalities. Patient was placed on 15 L of oxygen, which was brought down to 6 L. Over the course of her hospital stay, her headache, nausea and vomiting improved and she underwent 1 session of dialysis here. She was evaluated by Neurology, who recommended monitoring, supportive treatment, MRI of the head. This MRI showed no acute CVA, mild chronic microvascular ischemic changes. On evaluation today, she stated she is well and her pain is managed. Vitals have remained stable for discharge home. All medications and recommendations were thoroughly explained and the patient stated understanding of the same. G-tube discussion was held with the patient at bedside were all questions were answered and concerns were addressed. Assessment intractable headache, likely cluster headache Intractable nausea and vomiting,due to the above Hypertensive urgency Fluid overload Chronic HFpEF, EF 55%, not exacerbated End-stage renal disease on hemodialysis Microcytic anemia, likely chronic due to above Acute hypoxic respiratory failure Hypothyroidism, controlled Diabetes mellitus type 2,controlled Obesity, BMI 33.2 kg/m2 RAUDEL BREWSTER RESIDENT Oct 15, 2024 15:13
--- NOTE | 2024-10-15 19:02 | DVHPN2 ---
Progress Note - Dictate Date Seen: Oct 15, 2024 Has the PT tested + for MRSA If YES, has PT been informed?: No Medical Necessity Reason Pt with a Central, PICC or Fol: No Subjective Patient was seen and evaluated in follow up. No acute events overnight. Patient reports feeling better. Headache, nausea and vomiting have improved. vital signs Vital Sign Date Time Temp Pulse Resp B/P (MAP) Pulse Ox O2 Delivery O2 Flow Rate FiO2 10/15/24 13:00 97.1 66 18 138/54 (82) 96 97.1 10/15/24 08:00 Nasal Cannula* 3 32 Total Intake and Output 10/14/24 10/14/24 10/15/24 15:00 23:00 07:00 Intake Total 400 ml 200 ml Balance 400 ml 200 ml objective Vitals and nursing notes reviewed. General: In no acute distress. HEENT: Normocephalic, atraumatic, normal reactive pupils, mild photophobia, EOM intact, pink conjunctiva, pink moist mucous membrane Respiratory/pulmonary: Clear lungs bilaterally, vesicular murmurs present in almost all lung weiss, no associated crackles or wheezes. Cardiovascular: Normal RRR, normal S1 and S2 Abdomen: Obese, abdomen nondistended, there is no pain to palpation in any of the abdominal quadrants, no palpable masses. Extremities: Presence of AV fistula present on left upper arm with thrill, there is no peripheral edema present at the lower extremities. Skin: No rashes or pruritus, there is no sacral edema present at this time. Neurological: The patient alert and oriented in person place and time. Intact cranial nerves with no focal neurologic deficits. laboratory and microbiology Laboratory Tests 10/15/24 07:14 Test 10/15/24 07:14 Range/Units Serum Glucose 98 74-106 mg/dL Problem List Intractable headache, likely cluster headache Hypertensive urgency ESRD on hemodialysis Acute hypoxic respiratory failure Intractable nausea and vomiting Type 2 diabetes mellitus Chronic HFpEF, EF 55%, not exacerbated Assessment/Plan DC planning in progress. Last dialyzed 10/13. Resume outpatient dialysis with [facility]. Cleared for discharge from Nephrology standpoint. Dietary Evaluation Review Comments: 1) Add 60g CCHO cardiac restriction to renal diet 2) Encourage optimal PO intake 3) Refer to outpatient RD/CD[facility] for weight management 4) Follow-up with cardiology and nephrology 5) Continue to monitor I&O, labs, and skin integrity Expected Outcomes/Goals: 1) appetite and labs to improve 2) f/u in 3-5 days Plan discussed with: Patient, Other (RN) RIK WOODS DO Oct 15, 2024 19:02
[2024-10-15] MEDS ORDERED: CARVEDILOL 3.125 MG TAB PO SCH (22:00)
== END 2024-10-15 18:50 | disposition home or self-care (01) | DRG 189 ==
LOC: EDUNIT# 13:11 → EDBD 13:11 → ER 13:11 → OVERFLOW 23:25 → TELE-WESTW 10-12 21:37
PROVIDERS: ADMIT Internal Medicine Geriatric Medicine; ATTEND Internal Medicine Geriatric Medicine
PROC: 5A1D70Z Performance of Urinary Filtration, Intermittent, Less than 6 Hours Per Day (ICD-10-PCS; principal; 2024-10-13)
DX: J96.01 Acute respiratory failure with hypoxia (principal); N18.6 End stage renal disease; I13.2 Hypertensive heart and chronic kidney disease with heart failure and with stage 5 chronic kidney disease, or end stage renal disease; J98.11 Atelectasis; I50.32 Chronic diastolic (congestive) heart failure; G44.001 Cluster headache syndrome, unspecified, intractable; I16.0 Hypertensive urgency; E03.9 Hypothyroidism, unspecified; E11.22 Type 2 diabetes mellitus with diabetic chronic kidney disease; D63.1 Anemia in chronic kidney disease; E78.5 Hyperlipidemia, unspecified; E21.3 Hyperparathyroidism, unspecified; E66.9 Obesity, unspecified; D50.9 Iron deficiency anemia, unspecified; H53.149 Visual discomfort, unspecified; Z87.11 Personal history of peptic ulcer disease; Z99.2 Dependence on renal dialysis; Z79.4 Long term (current) use of insulin; Z83.3 Family history of diabetes mellitus; Z68.33 Body mass index [BMI] 33.0-33.9, adult; Z79.82 Long term (current) use of aspirin; Z79.899 Other long term (current) drug therapy
CPT/HCPCS: 36415; 70450; 70551; 71045; 74176; 80048; 80053; 82962; 83690; 83880; 84443; 84484; 85025; 85652; 86141; 86803; 87340; 90935; 93306; 96365; 96375; G0378; J1815; J2405